=== PATIENT | male | born 1960 | race Caucasian/White ===

== ENCOUNTER 2017-03-20 17:36 | Inpatient (IN) | payer MEDICARE, MEDICAID ==
[~2017-03-20] VITALS: Ht 180.3 cm; Wt 92.8 kg
[2017-03-20] VITALS (10 sets, daily range): BP systolic 93–103; BP diastolic 69–78
[~2017-03-20 17:36] MED LIST: ALPR2TAB2 PO; CYCL10TA9 PO; HDR4T; HDR4T PO; HYDR-3720; HYDR8TAB24 PO; IBP200T PO; IBUP-15; IBUP800T26 PO; NAPR-243; NAPR-243 PO; OXC5T PO; OXYC10TA7 PO; PRD20T PO; TRAM50TA2 PO
--- OUTSIDE RECORDS SUMMARY | 2017-03-20 17:41 | XMS REPORT | Clinical Summary ---
Author Author [facility] Organization [facility] Address Unknown Phone Unavailable Care Team Providers Care Cake Former Name Role Phone PCP Unavailable Source Comments Some departments are not documenting in the electronic medical record. If you do not see the information that you expected, contact Release of Information in the Health Information Management department at [phone] for further assistance in locating additional records.[facility] Allergies Not on File Current Medications Not on file Active Problems Not on file Social History Tobacco Use Types Packs/Day Years Used Date Never Assessed Sex Assigned at Date Recorded Not on file Last Filed Vital Signs Not on file Plan of Treatment Health Maintenance Due Date Last Done Comments HEPATITIS C SCREENING 1960 PHYSICAL (COMPREHENSIVE) 11/09/1966 EXAM PERTUSSIS VACCINE 11/09/1970 TETANUS VACCINE 11/09/1976 COLORECTAL CANCER 11/09/2009 SCREENING INFLUENZA VACCINE 04/08/2017 Results Not on filefrom Last 3 Months
[2017-03-20] MEDS ORDERED: methylPREDNISolone 125 MG (Solu-MEDROL) VIAL IV STA (17:42)
[2017-03-20] MEDS ORDERED: PIPERACILLIN SODIUM/TAZOBACTAM 4.5 GM in NS (IVPB) 100 ML IV ONE (17:45)
[2017-03-20] MEDS ORDERED: NS IV 1000 ML 2,500 ML IV PRN ×2 (17:45→22:00)
[2017-03-20] MEDS ORDERED: RT-ALBUTEROL/IPRATROPIUM 3 ML (DUONEB) VIAL INH ONE (17:45)
[2017-03-20] MEDS ORDERED: OXYC20TA3 PO (17:48)
[2017-03-20] MEDS ORDERED: MORP10CA11 (17:48)
--- NOTE | 2017-03-20 17:51 | ED General ---
General Chief Complaint: Altered Mental Status Stated Complaint: AMS/STROKE LIKE SYMPTOMS Nursing Triage Note: ASSISTED PT OUT OF CAR. STATES THE LAST TIME SHE SAW HIM ON TUESDAY HE WAS SICK AND THROWING UP AND NOT MAKING MUCH SINCE. TODAY WHEN SHE CAME HOME HE IS WORSE. Nursing Sepsis Screen: Possible Severe Sepsis Risk Source of Information: Patient, Spouse Exam Limitations: Other (clinical condition) History of Present Illness Time Seen by Provider: 17:42 Initial Comments patient presents to ER by his a private conveyance with chief complaint of she went out of town Tuesday and he was feeling, appearing when she came back he was not able to move much, shaking and not able to answer questions very well. She states his past medical history consists of some back problems for which she uses morphine twice a day and oxycodone breakthrough. Patient states he did not take that much but is not sure exactly how many tablets he took. patient's able to speak and answer questions and follow commands but he is not able to give much history and is oriented to place but not time. He smokes 2 packs per day per and had a coronary angiogram done here at [place] [facility] for 5 years ago that was unremarkable. He was seen for his annual physical in June 2016 was told everything was okay, no thyroid, lipid disorder, high blood pressure, diabetes, etc. She was told his spinal problems probably due to a distant infection when he was younger. He does not drink alcohol but has a very distant history of marijuana use. Allergies and Home Medications Allergies Coded Allergies: No Known Drug Allergies (Unverified , 08/23/13) Home Medications Alprazolam 2 Mg Tablet, 2 MG PO Q8H PRN, (Reported) Morphine Sulfate 10 Mg Cap.er.pel, #120 (Reported) Oxycodone HCl 20 Mg Tablet, #120 (Reported) Prednisone 20 Mg Tab, 40 MG PO DAILY for 4 Days, Ref 0 Prescribed by: LUIS ARNOLD on 08/23/132027 Tramadol Hcl 50 Mg Tablet, 50 MG PO Q4H PRN for PAIN, #6 Ref 0 Prescribed by: LUIS ARNOLD on 08/23/132027 Constitutional: see HPI (history of present illness given mostly by ), chills, No diaphoresis, malaise, weakness EENTM: No ear discharge, No ear pain, No hearing loss Respiratory: cough, No phlegm, short of breath Cardiovascular: No chest pain, No syncope Gastrointestinal: No abdominal pain, constipation (last bowel movement 2 or more days ago), No nausea, No vomiting Genitourinary: No discharge, No dysuria Musculoskeletal: see HPI, back pain, No joint pain, neck pain Skin: No change in color, No pruritus, No rash Psychiatric/Neurological: Denies Headache, Denies Numbness, Denies Paresthesia Past Nninzmz-Jsvcme-Yzgusz Hx Patient Social History Alcohol Use: Denies Use Recreational Drug Use: No Smoking Status: Current Everyday Smoker Recent Foreign Travel: No Contact w/Someone Who Travel: No Recent Infectious Disease Expo: No Recent Hopitalizations: Yes Surgeries HX Surgeries: No Respiratory Hx Respiratory Disorders: No Cardiovascular Hx Cardiac Disorders: No Neurological Hx Neurological Disorders: No Reproductive System Hx Reproductive Disorders: No Genitourinary Hx Genitourinary Disorders: No Gastrointestinal Hx Gastrointestinal Disorders: Yes (HERNIA SX) Musculoskeletal Hx Musculoskeletal Disorders: Yes (ARACHNODITIS OSSIFICANS) Musculoskeletal Disorders: Chronic Back Pain Endocrine Hx Endocrine Disorders: No HEENT HX ENT Disorders: Yes (RECEDING GUMS) Psychosocial Hx Psychiatric Problems: Yes Blood Transfusions Hx Blood Disorders: No Family Medical History Significant Family History: No Pertinent Family Hx Physical Exam-Suspected Sepsis Physical Exam Vital Signs Vital Sign - Last 12Hours 03/20/17 03/20/17 17:36 18:02 Temp 102.0 Pulse 146 Resp 24 B/P (MAP) 128/71 Pulse Ox 87 O2 Delivery Room Air O2 Flow Rate 2.00 Capillary Refill : Less Than 3 Seconds General Appearance: WD/WN, Moderate Distress Eyes: Bilateral Eye EOMI, Bilateral Eye Normal Inspection, Bilateral Eye PERRL HEENT: PERRL/EOMI, TMs Normal Neck: Normal Inspection, Supple, Tender Lateral Respiratory: Chest Non Tender, Decreased Breath Sounds, Wheezing (diffuse scattered basilar wheezes) Cardiovascular: Regular Rate, Rhythm, No Edema, Tachycardia Gastrointestinal: Non Tender, Soft Genital/Rectal: Normal Genital Exam Back: Normal Inspection, Vertebral Tenderness (all levels) Extremity: Normal Capillary Refill, Normal Inspection, Non Tender, No Pedal Edema Neurologic/Psychiatric: Alert, Other (oriented to person and place but not time ) Reflexes: 2+ Knee (R), 2+ Knee (L) Skin: normal color, warm/dry, other (few minor scratches on right forearm consistent with cat scratch but non-erythematous or inflamed.) Lymphatic: No Adenopathy, Other Focused Exam Evaluation Sepsis Stage: Sepsis Possible Source: Pulmonary Time of Focused Exam: 20:50 Respiratory: Chest Non Tender, No Accessory Muscle Use, Wheezing Cardiovascular: Regular Rate, Rhythm, No Edema, No Murmur Capillary Refill: Less Than 3 Seconds Peripheral Pulses: 2+ Radial Pulses (R), 2+ Radial Pulses (L) Skin: normal color, warm/dry Lactic Acid Level Progress/Results/Core Measures Suspected Sepsis Recent Fever Within 48 Hours: No Infection Criteria Present: Suspected New Infection New/Unexplained Altered Menta: Yes Sepsis Screen: Possible Severe Sepsis Risk Sepsis Diagnosis: SIRS Temperature:102.0 Pulse: Respiratory Rate: 24 Laboratory Tests 03/20/17 17:55: White Blood Count 12.2H Blood Pressure / Mean: Laboratory Tests 03/20/17 17:55: Creatinine 1.47H, INR Comment 1.3, Platelet Count 195, Total Bilirubin 1.7H Results/Orders Lab Results Laboratory Tests Test 03/20/17 17:55 03/20/17 19:45 03/20/17 20:29 03/20/17 21:50 Range/Units White Blood Count 12.2 H 4.3-11.0 10^3/uL Red Blood Count 4.99 4.35-5.85 10^6/uL Hemoglobin 13.5 13.3-17.7 G/DL Hematocrit 40 40-54 % Mean Corpuscular Volume 80 80-99 FL Mean Corpuscular Hemoglobin 27 25-34 PG Mean Corpuscular Hemoglobin Concent 34 32-36 G/DL Red Cell Distribution Width 15.4 H 10.0-14.5 % Platelet Count 195 130-400 10^3/uL Mean Platelet Volume 10.6 H 7.4-10.4 FL Neutrophils (%) (Auto) 89 H 42-75 % Lymphocytes (%) (Auto) 4 L 12-44 % Monocytes (%) (Auto) 5 0-12 % Eosinophils (%) (Auto) 1 0-10 % Basophils (%) (Auto) 0 0-10 % Neutrophils # (Auto) 10.9 H 1.8-7.8 X 10^3 Lymphocytes # (Auto) 0.5 L 1.0-4.0 X 10^3 Monocytes # (Auto) 0.6 0.0-1.0 X 10^3 Eosinophils # (Auto) 0.1 0.0-0.3 10^3/uL Basophils # (Auto) 0.1 0.0-0.1 10^3/uL Neutrophils % (Manual) 81 % Lymphocytes % (Manual) 4 % Monocytes % (Manual) 4 % Eosinophils % (Manual) 0 % Basophils % (Manual) 0 % Band Neutrophils 11 % Blood Morphology Comment NORMAL Prothrombin Time 15.7 H 12.2-14.7 SEC INR Comment 1.3 0.8-1.4 Activated Partial Thromboplast Time 98 H 24-35 SEC Sodium Level 126 L 135-145 MMOL/L Potassium Level 3.9 3.6-5.0 MMOL/L Chloride Level 90 L 98-107 MMOL/L Carbon Dioxide Level 22 21-32 MMOL/L Anion Gap 14 5-14 MMOL/L Blood Urea Nitrogen 18 7-18 MG/DL Creatinine 1.47 H 0.60-1.30 MG/DL Estimat Glomerular Filtration Rate 49 BUN/Creatinine Ratio 12 Glucose Level 102 70-105 MG/DL Lactic Acid Level 3.12 *H 1.54 0.50-2.00 MMOL/L Calcium Level 9.0 8.5-10.1 MG/DL Total Bilirubin 1.7 H 0.1-1.0 MG/DL Aspartate Amino Transf (AST/SGOT) 14 5-34 U/L Alanine Aminotransferase (ALT/SGPT) 11 0-55 U/L Alkaline Phosphatase 107 40-136 U/L Troponin I < 0.30 <0.30 NG/ML Total Protein 7.8 6.4-8.2 GM/DL Albumin 3.3 3.2-4.5 GM/DL Urine Color MARY H Urine Clarity SLIGHTLY CLOUDY Urine pH 5 5-9 Urine Specific [place] 1.020 1.016-1.022 Urine Protein 2+ H NEGATIVE Urine Glucose (UA) NEGATIVE NEGATIVE Urine Ketones NEGATIVE NEGATIVE Urine Nitrite POSITIVE H NEGATIVE Urine Bilirubin 2+ H NEGATIVE Urine Urobilinogen 8 H NORMAL MG/DL Urine Leukocyte Esterase 3+ H NEGATIVE Urine RBC (Auto) 5+ H NEGATIVE Urine RBC 10-25 H /HPF Urine WBC >100 H /HPF Urine Crystals NONE /LPF Urine Bacteria FEW H /HPF Urine Casts NONE /LPF Urine Mucus NEGATIVE /LPF Urine Culture Indicated YES Blood Gas Puncture Site LEFT RADIAL Blood Gas Patient Temperature 99.1 Arterial Blood pH 7.38 7.37-7.43 Arterial Blood Partial Pressure CO2 37 35-45 MMHG Arterial Blood Partial Pressure O2 55 L 79-93 MMHG Arterial Blood HCO3 22 L 23-27 MMOL/L Arterial Blood Total CO2 22.8 21.0-31.0 MMOL/L Arterial Blood Oxygen Saturation 87 L 94-100 % Arterial Blood Base Excess -2.6 L -2.5-2.5 MMOL/L Ozzy Test YES-POS Blood Gas Ventilator Setting NO Blood Gas Inspired Oxygen ROOM AIR Test 03/21/17 00:35 Range/Units My Orders Orders - NAZARIO LIVINGSTON Acetaminophen Tablet (Tylenol Tablet) (03/20/17 18:00) Diltiazem Injection (Cardizem Injection) (03/20/17 18:15) Sodium Chloride (Ad... W/Diltiazem Drip (03/20/17 18:15) Ekg Tracing (03/20/17 18:39) Osmolality Urine (03/20/17 19:35) Enoxaparin Injection (Lovenox Injection) (03/20/17 21:00) Rx-Nitroglycerin Sl Tabs (Rx-Nitrostat S (03/20/17 21:06) Fentanyl Injection (Sublimaze Injection (03/20/17 21:08) Medications Given in ED Current Medications Medications Dose Ordered Sig/Kenzie Route Start Time Stop Time Status Last Admin Dose Admin Acetaminophen 1,000 mg ONCE ONCE PO 03/20/17 18:00 03/20/17 18:01 DC 03/20/17 18:07 1,000 MG Albuterol/ Ipratropium 3 ml ONCE ONCE INH 03/20/17 17:45 03/20/17 17:46 DC 03/20/17 18:01 3 ML Diltiazem HCl 10 mg ONCE ONCE IVP 03/20/17 18:15 03/20/17 18:16 DC 03/20/17 18:32 10 MG Piperacillin Sod/ Tazobactam Sod 4.5 gm/Sodium Chloride 100 ml @ 200 mls/hr ONCE ONCE IV 03/20/17 17:45 03/20/17 18:14 DC 03/20/17 18:26 200 MLS/HR Sodium Chloride 2,500 ml @ 1,250 mls/hr PRN PRN IV 03/20/17 17:45 03/20/17 21:56 DC 03/20/17 17:55 1,250 MLS/HR Vital Signs/I&O Vital Sign - Last 12Hours 03/20/17 03/20/17 03/20/17 03/20/17 17:36 18:02 18:36 21:25 Temp 102.0 102.5 99.9 Pulse 146 116 84 Resp 24 20 18 B/P (MAP) 128/71 105/71 Pulse Ox 87 95 92 92 O2 Delivery Room Air Nasal Cannula Room Air O2 Flow Rate 2.00 03/20/17 03/20/17 03/20/17 03/20/17 21:33 21:40 21:45 22:00 Temp 99.1 Pulse 85 79 82 Resp 16 18 B/P (MAP) 102/78 100/74 Pulse Ox 92 90 O2 Delivery Room Air Room Air Nasal Cannula O2 Flow Rate 2.00 03/20/17 03/20/17 03/20/17 03/20/17 22:00 22:15 22:15 22:16 Pulse 73 72 80 Resp 13 10 B/P (MAP) 95/71 100/77 Pulse Ox 90 90 94 90 O2 Delivery Room Air Room Air Room Air 03/20/17 03/20/17 03/20/17 03/20/17 22:30 22:45 22:45 23:00 Pulse 69 77 76 Resp 12 25 20 B/P (MAP) 99/78 93/69 96/76 Pulse Ox 95 92 95 94 O2 Delivery Room Air Room Air Nasal Cannula Room Air O2 Flow Rate 2.00 03/20/17 03/20/17 23:15 23:30 Pulse 79 77 Resp 38 24 B/P (MAP) 103/70 99/74 Pulse Ox 93 92 O2 Delivery Room Air Room Air Capillary Refill : Less Than 3 Seconds Progress Note : Time: 18:08 Progress Note patient appears to be septic and gives a history of a cough and a history of 2 pack a day smoking as well as using breathing treatments for what is likely COPD. We'll go and treat him for severe sepsis. His blood pressures okay but it was roughly satting low on room air. Were giving him Solu-Medrol as well as starting him on some Zosyn for community-acquired pneumonia. We'll get x-ray and blood cultures He appears very dry and is unable to produce any urine yet so we'll get some fluids in him first. ECG Initial ECG Impression Date: Mar 20, 2017 Initial ECG Impression Time: 17:50 Initial ECG Rate: 146 Initial ECG Rhythm: S.Tach Initial ECG Intervals: Normal Initial ECG Impression: Nonspecific Changes (sinus ventricular tachycardia) Initial ECG Comparisson: No Previous ECG Available Comment there is some ST wave depression in the lateral leads V3 through 6 as well as a lot of artifact. EKG : EKG Time: 19:20 Rate: 97 Rhythm: A Fib/Flutter Intervals: Normal ECG Comparisson: No Previous ECG Available ECG Impression: Atrial Fibrillation Comment No ST elevation or depression Consults Consults : Consulting Physician: CECILLE MONTIEL MD Consults Notes discussed with cardiology the patient's diffuse lateral ST wave depression as well as his presentation of looking like sepsis with fever and being very dry and confused. He recommends starting Cardizem 10 mg bolus plus drip at 5 mg per hour. He says if the patient becomes hypotensive just discontinue the drip and I will metabolize off in about 5 minutes. I forwarded a copy of the EKG to the cyber software engineer to review. He recommends getting a couple liters of fluid in the gentlemen's well. After reviewing the EKG the cyber software engineer states that he agrees and we should watch for ST changes after the heart rate improves. Departure Communication Time/Spoke to Admitting Phy: 19:42 Communication Jain; discussed the case and antibiotic selection. Discussed cardiology's involvement and Cardizem drip. Impression Impression: Primary Impression: Sepsis Qualified Codes: A41.9 - Sepsis, unspecified organism Additional Impression: Atrial flutter by electrocardiogram Disposition: 09 ADMITTED INPATIENT Condition: Stable Admissions Decision to Admit Reason: Admit from ER (General) Decision to Admit/Date: Mar 20, 2017 Time/Decision to Admit Time: 20:50 Departure-Patient Inst. Referrals: NO,LOCAL PHYSICIAN (PCP/Family) Primary Care Physician NAZARIO LIVINGSTON Mar 20, 2017 17:51
[2017-03-20] MEDS ORDERED: ACETAMINOPHEN 500 MG TAB (TYLENOL) PO ONE (18:00)
[2017-03-20 18:03] LABS: BASOPHILS # (AUTO) 0.1 10^3/uL (0.0-0.1); BASOPHILS % (AUTO) 0 % (0-10); EOSINOPHILS # (AUTO) 0.1 10^3/uL (0.0-0.3); EOSINOPHILS % (AUTO) 1 % (0-10); LYMPHOCYTES # (AUTO) 0.5 X 10^3 (1.0-4.0); LYMPHOCYTES % (AUTO) 4 % (12-44); MEAN CORPUSCULAR HEMOGLOBIN 27 PG (25-34); MEAN CORPUSCULAR HGB CONC 34 G/DL (32-36); MEAN CORPUSCULAR VOLUME 80 FL (80-99); MEAN PLATELET VOLUME 10.6 FL (7.4-10.4); MONOCYTES # (AUTO) 0.6 X 10^3 (0.0-1.0); MONOCYTES % (AUTO) 5 % (0-12); NEUTROPHILS # (AUTO) 10.9 X 10^3 (1.8-7.8); NEUTROPHILS % (AUTO) 89 % (42-75); PLATELET COUNT 195 10^3/uL (130-400); RED BLOOD COUNT 4.99 10^6/uL (4.35-5.85); RED CELL DISTRIBUTION WIDTH 15.4 % (10.0-14.5); WHITE BLOOD COUNT 12.2 10^3/uL (4.3-11.0)
[2017-03-20 18:14] LABS: INR 1.3 (0.8-1.4); PROTHROMBIN TIME PATIENT 15.7 SEC (12.2-14.7)
[2017-03-20] MEDS ORDERED: DILTIAZEM DRIP 100 MG in SODIUM CHLORIDE (ADD-VANTAGE) 100 ML IV SCH (18:15)
[2017-03-20] MEDS ORDERED: DILTIAZEM 25 MG/5 ML INJ (CARDIZEM) VIAL IVP ONE (18:15)
[2017-03-20 18:26] LABS: ALANINE AMINOTRANSFERASE 11 U/L (0-55); ALBUMIN 3.3 GM/DL (3.2-4.5); ANION GAP 14 MMOL/L (5-14); ASPARTATE AMINO TRANSFERASE 14 U/L (5-34); BAND NEUTROPHILS 11 %; BASOPHILS % (MANUAL) 0 %; BILIRUBIN,TOTAL 1.7 MG/DL (0.1-1.0); BLOOD UREA NITROGEN 18 MG/DL (7-18); BUN/CREATININE RATIO 12; CARBON DIOXIDE 22 MMOL/L (21-32); CHLORIDE 90 MMOL/L (98-107); CREATININE SERUM 1.47 MG/DL (0.60-1.30); EOSINOPHILS % (MANUAL) 0 %; GFR ESTIMATED 49; GLUCOSE 102 MG/DL (70-105); LYMPHOCYTES % (MANUAL) 4 %; NEUTROPHILS % (MANUAL) 81 %; POTASSIUM 3.9 MMOL/L (3.6-5.0); SODIUM 126 MMOL/L (135-145); TOTAL PROTEIN 7.8 GM/DL (6.4-8.2)
[2017-03-20 18:31] LABS: TROPONIN I < 0.30 NG/ML (<0.30)
--- NOTE | 2017-03-20 18:37 | Diagnostic Imaging Report ---
INDICATION: Lethargy. Nausea and vomiting. COMPARISON: 01/01/2009. EXAMINATION: Single frontal view of the chest was obtained. FINDINGS: Normal heart size and pulmonary vascularity. The lungs show low inspiratory volumes, but are otherwise clear. No large pleural effusion or pneumothorax is seen. The visualized osseous structures show no acute abnormalities. IMPRESSION: No acute cardiopulmonary process. Dictated by: Dictated on workstation # [id number]
[2017-03-20 19:52] LABS: BILIRUBIN,URINE 2+ (NEGATIVE); KETONES,URINE NEGATIVE (NEGATIVE); LEUKOCYTE ESTERASE ,URINE 3+ (NEGATIVE); NITRITE,URINE POSITIVE (NEGATIVE); PH,URINE 5 (5-9); PROTEIN,URINE 2+ (NEGATIVE); UROBILINOGEN,URINE 8 MG/DL (NORMAL)
[2017-03-20 20:13] LABS: WBC,URINE >100 /HPF
[2017-03-20] MEDS ORDERED: ENOXAPARIN 100 MG/1 ML (LOVENOX) SYR SC ONE (21:00)
[2017-03-20] MEDS ORDERED: RX-NITROGLYCERIN 0.4 MG TAB BTL 25'S SL ONE (21:06)
[2017-03-20] MEDS ORDERED: fentaNYL INJECTION 100 MCG/2 ML AMP ONE (21:08)
[2017-03-20] MEDS ORDERED: ENOXAPARIN 100 MG/1 ML (LOVENOX) SYR SC SCH (21:53)
[2017-03-20] MEDS ORDERED: NS IV 1000 ML 1,000 ML IV SCH (21:58)
[2017-03-20 21:59] LABS: ABG BASE EXCESS -2.6 MMOL/L (-2.5-2.5); ABG HCO3 22 MMOL/L (23-27); ABG OXYGEN SATURATION 87 % (94-100); ABG PCO2 37 MMHG (35-45); ABG PH 7.38 (7.37-7.43); ABG PO2 55 MMHG (79-93); ABG TCO2 22.8 MMOL/L (21.0-31.0)
[2017-03-20] MEDS ORDERED: morphine INJ 4 MG/ML 1 ML (VIAL/SYRINGE) IV PRN (22:00)
[2017-03-20] MEDS ORDERED: NITROGLYCERIN SUBLINGUAL 0.4 MG TAB (NITROSTAT) SL PRN (22:00)
[2017-03-20] MEDS ORDERED: ACETAMINOPHEN 325 MG TABLET/CAPLET (TYLENOL) PO PRN (22:00)
[2017-03-20] MEDS ORDERED: ONDANSETRON 4 MG/2 ML (SDV) Z0FRAN IV PRN (22:00)
[2017-03-20] MEDS: DILTIAZEM DRIP 100 MG/NS 100 ML IV SCH ×2 (22:00)
[2017-03-20 22:01] LABS: ALLENS TEST YES-POS; PATIENT TEMP 99.1
[2017-03-20] MEDS ORDERED: cefTRIAXone INJECTION 1,000 MG in NS (IVPB) 50 ML IV SCH (22:06)
[2017-03-20] MEDS ORDERED: AZITHROMYCIN INJECTION 500 MG in NS (IVPB) 250 ML IV ONE (22:07)
[2017-03-20] MEDS: NS IV 1000 ML 1,000 ML IV SCH (22:43)
[2017-03-20] MEDS ORDERED: RT-ALBUTEROL/IPRATROPIUM 3 ML (DUONEB) VIAL INH PRN (22:45)
[2017-03-21] VITALS (25 sets, daily range): BP systolic 72–120; BP diastolic 39–96
[2017-03-21] MEDS: RT-ALBUTEROL/IPRATROPIUM 3 ML (DUONEB) VIAL INH SCH ×6 (01:26→22:09)
[2017-03-21] MEDS ORDERED: NS IV 1000 ML 1,000 ML IV SCH ×2 (02:00→07:30)
[2017-03-21] MEDS: PIPERACILLIN/TAZOBACTAM 4.5 GM/NS100 ML IVPB IV SCH ×6 (02:15→16:38)
[2017-03-21] MEDS: methylPREDNISolone 40 MG/ML (Solu-MEDROL) VIAL IV SCH ×3 (02:15→18:24)
[2017-03-21] MEDS ORDERED: PANTOPRAZOLE 40 MG/10 ML (PROTONIX) VIAL ONE (04:11)
[2017-03-21] MEDS ORDERED: PANTOPRAZOLE 40 MG/10 ML (PROTONIX) VIAL IV SCH (05:00)
[2017-03-21 05:21] LABS: BASOPHILS % (AUTO) 0 % (0-10); EOSINOPHILS % (AUTO) 0 % (0-10); LYMPHOCYTES # (AUTO) 0.3 X 10^3 (1.0-4.0); LYMPHOCYTES % (AUTO) 4 % (12-44); MEAN CORPUSCULAR HEMOGLOBIN 27 PG (25-34); MEAN CORPUSCULAR HGB CONC 33 G/DL (32-36); MEAN CORPUSCULAR VOLUME 81 FL (80-99); MEAN PLATELET VOLUME 11.1 FL (7.4-10.4); MONOCYTES # (AUTO) 0.3 X 10^3 (0.0-1.0); MONOCYTES % (AUTO) 4 % (0-12); NEUTROPHILS # (AUTO) 7.4 X 10^3 (1.8-7.8); NEUTROPHILS % (AUTO) 92 % (42-75); PLATELET COUNT 144 10^3/uL (130-400); RED BLOOD COUNT 3.91 10^6/uL (4.35-5.85); RED CELL DISTRIBUTION WIDTH 15.3 % (10.0-14.5); WHITE BLOOD COUNT 8.1 10^3/uL (4.3-11.0)
--- OUTSIDE RECORDS SUMMARY | 2017-03-21 05:29 | XMS REPORT | Clinical Summary ---
Author Author [facility] Organization [facility] Address Unknown Phone Unavailable Care Team Providers Care Charging Plug Placer Name Role Phone PCP Unavailable Source Comments Some departments are not documenting in the electronic medical record. If you do not see the information that you expected, contact Release of Information in the Health Information Management department at [phone] for further assistance in locating additional records.[facility] Allergies Not on File Current [...]
[2017-03-21 05:34] LABS: ALANINE AMINOTRANSFERASE 10 U/L (0-55); ALBUMIN 2.6 GM/DL (3.2-4.5); ANION GAP 11 MMOL/L (5-14); ASPARTATE AMINO TRANSFERASE 13 U/L (5-34); BLOOD UREA NITROGEN 19 MG/DL (7-18); BUN/CREATININE RATIO 19; CARBON DIOXIDE 19 MMOL/L (21-32); CHLORIDE 103 MMOL/L (98-107); CHOLESTEROL 48 MG/DL (< 200); CREATININE SERUM 0.99 MG/DL (0.60-1.30); DIRECT LDL 16 MG/DL (1-129); GFR ESTIMATED > 60; GLUCOSE 167 MG/DL (70-105); MAGNESIUM 1.5 MG/DL (1.8-2.4); PHOSPHORUS 3.5 MG/DL (2.3-4.7); POTASSIUM 3.3 MMOL/L (3.6-5.0); SODIUM 133 MMOL/L (135-145); TOTAL PROTEIN 5.9 GM/DL (6.4-8.2); TRIGLYCERIDES 77 MG/DL (<150); VLDL CHOLESTEROL 15 MG/DL (5-40)
[2017-03-21 05:39] LABS: TROPONIN I < 0.30 NG/ML (<0.30)
[2017-03-21] MEDS: POTASSIUM CL 10MEQ/50ML IVPB 50 ML IV SCH ×5 (05:57→09:59)
[2017-03-21] MEDS: MAGNESIUM 1 GM/100 ML IVPB 100 ML IV SCH ×3 (05:57→07:01)
[2017-03-21] MEDS: KCL 20 MEQ TAB (K-DUR) PO SCH (05:58)
[2017-03-21] MEDS ORDERED: NS IV 500 ML 500 ML ONE (06:07)
[2017-03-21] MEDS ORDERED: NS IV 500 ML 500 ML IV ONE (06:15)
--- NOTE | 2017-03-21 06:37 | Pulmonary Consultation ---
History of Present Illness History of Present Illness Date of Consultation 03/21/17 06:32 Time Seen by Provider: 06:32 Date of Admission History of Present Illness 56yo with hx of COPD with persistent tobacco use presented to ED secondary to progressive SOB, and productive cough of yellow sputum. Family insisted pt present to ED secondary to appearing ill. Pt was found to have Dyspnea, wheezing labs showed WBC 12.2 and LA 3.12. No prior episodes like this. No known sick contacts. Allergies and Home Medications Allergies Coded Allergies: No Known Drug Allergies (Unverified , 08/23/13) Home Medications Alprazolam 2 Mg Tablet, 2 MG PO Q8H PRN, (Reported) Morphine Sulfate 10 Mg Cap.er.pel, #120 (Reported) Oxycodone HCl 20 Mg Tablet, #120 (Reported) Prednisone 20 Mg Tab, 40 MG PO DAILY for 4 Days, Ref 0 Prescribed by: LUIS ARNOLD on 08/23/132027 Tramadol Hcl 50 Mg Tablet, 50 MG PO Q4H PRN for PAIN, #6 Ref 0 Prescribed by: LUIS ARNOLD on 08/23/132027 Past Gzhcjsw-Ytizjt-Novlqv Hx Patient Social History Alcohol Use: Denies Use Recreational Drug Use: No Smoking Status: Current Everyday Smoker Type Used: Cigarettes Recent Foreign Travel: No Contact w/Someone Who Travel: No Recent Infectious Disease Expo: No Recent Hopitalizations: No Physical Abuse Screen: No Sexual Abuse: No Immunizations Up To Date PED Vaccines UTD: No Seasonal Allergies Seasonal Allergies: No Surgeries HX Surgeries: No Respiratory Hx Respiratory Disorders: No Respiratory Disorders: COPD Cardiovascular Hx Cardiac Disorders: No Neurological Hx Neurological Disorders: No Reproductive System Hx Reproductive Disorders: No Genitourinary Hx Genitourinary Disorders: No Gastrointestinal Hx Gastrointestinal Disorders: Yes (HERNIA SX) Gastrointestinal Disorders: Gastroesophageal Reflux Musculoskeletal Hx Musculoskeletal Disorders: Yes (ARACHNODITIS OSSIFICANS) Musculoskeletal Disorders: Chronic Back Pain Endocrine Hx Endocrine Disorders: No HEENT HX ENT Disorders: Yes (RECEDING GUMS) Psychosocial Hx Psychiatric Problems: Yes Blood Transfusions Hx Blood Disorders: No Family Medical History Significant Family History: No Pertinent Family Hx Exam Exam Vital Signs Date Time Temp Pulse Resp B/P (MAP) Pulse Ox O2 Delivery O2 Flow Rate FiO2 03/21/17 06:15 68 19 85/57 94 Nasal Cannula 2.00 03/21/17 05:21 54 87/65 8/14/17 05:17 59 11 87/65 91 Nasal Cannula 2.00 03/21/17 04:30 96.5 Nasal Cannula 2.00 03/21/17 04:00 61 23 85/57 95 Nasal Cannula 2.00 03/21/17 04:00 95 Nasal Cannula 2.00 03/21/17 03:00 60 18 85/61 92 Nasal Cannula 2.00 03/21/17 02:00 70 6 85/68 92 Nasal Cannula 2.00 03/21/17 01:50 73 03/21/17 01:26 95 Nasal Cannula 2.00 03/21/17 01:00 65 23 88/63 89 Nasal Cannula 2.00 03/21/17 00:00 99.6 Nasal Cannula 2.00 03/21/17 00:00 81 16 97/70 92 Nasal Cannula 2.00 03/21/17 00:00 95 Nasal Cannula 2.00 03/20/17 23:30 77 24 99/74 92 Room Air 03/20/17 23:15 79 38 103/70 93 Room Air 03/20/17 23:00 76 20 96/76 94 Room Air 03/20/17 22:45 95 Nasal Cannula 2.00 03/20/17 22:45 77 25 93/69 92 Room Air 03/20/17 22:30 69 12 99/78 95 Room Air 03/20/17 22:16 80 90 21 03/20/17 22:15 72 10 100/77 94 Room Air 03/20/17 22:15 90 Room Air 03/20/17 22:00 73 13 95/71 90 Room Air 03/20/17 22:00 Nasal Cannula 2.00 03/20/17 21:45 82 18 100/74 90 Room Air 03/20/17 21:40 79 03/20/17 21:33 99.1 85 16 102/78 92 Room Air 03/20/17 21:30 91 Room Air 03/20/17 21:25 99.9 84 18 92 Room Air 03/20/17 18:36 102.5 116 20 105/71 92 03/20/17 18:02 95 Nasal Cannula 2.00 03/20/17 17:36 102.0 146 24 128/71 87 Room Air I & O 03/21/17 06:59 Intake Total 4000 ml Output Total 1600 ml Balance 2400 ml General Appearance: WD/WN, Mild Distress HEENT: PERRL/EOMI, TMs Normal Neck: Normal Inspection, Supple, Tender Lateral Respiratory: Chest Non Tender, No Accessory Muscle Use, Wheezing Cardiovascular: Regular Rate, Rhythm, No Edema, No Murmur Capillary Refill: Less Than 3 Seconds Peripheral Pulses: 2+ Radial Pulses (R), 2+ Radial Pulses (L) Extremity: Normal Capillary Refill, Normal Inspection, Non Tender, No Pedal Edema Neurologic/Psychiatric: Alert, Other (oriented to person and place but not time ) Lymphatic: No Adenopathy, Other Results Lab Laboratory Tests 03/20/17 17:55 03/21/17 04:50 Assessment/Plan Assessment/Plan Severe Sepsis with UTI and probable Community acquired PNA -Continue Zosyn -Aggressive IVF per protocol NS 120 (30cc/kg) -Soto cultures pending (blood, urine, Sputum) -Pt is currently growing s. aureus in 2/2 blood cultures -Will add vancomycin for now (pt has sever sepsis and has been hypotensive. I question if normal WBC on this AM labs is correct) -Keep zosyn until cultures our final Hypotension - responding to IVF -IVF -Repeat 1 liter bolus of NS COPDAE -Solumedrol 40 IV Q 6 -SVNS duoneb Q4 and Q2 PRN Metabolic lactic acidosis -IVF -Monitor Aflutter with RVR -Was on cardizem gtt now d/c secondary to bradycardia Hypokalemia -40meq KCL Hypomagnesemia -2gms of Mgsulfate GI/DVT ppx -currently on protonix 40mg BID -- secondary to HB dropping rapidly -check occult stool -Lovenox currently -SCDs - pt is refusing 255 Clinical Quality Measures DVT/VTE Risk/Contraindication: Risk Factor Score Per Nursin RFS Level Per Nursing on Admit: 4+=Very High CONCEPCION GUZMAN DO Mar 21, 2017 06:37
[2017-03-21] MEDS ORDERED: VANCOMYCIN INJECTION 0.1 MG in NS (IVPB) 250 ML IV SCH (07:00)
[2017-03-21] MEDS ORDERED: VANCOMYCIN 1,750 MG/NS 500 ML IVPB IV NR ×2 (07:45)
--- NOTE | 2017-03-21 08:02 | Diagnostic Imaging Report ---
INDICATION: COPD. EXAMINATION: Chest, December 19, 2016. Comparison made to 03/20/2013. FINDINGS: The heart is enlarged and there is pulmonary poor gastric congestion. There are findings of pulmonary edema with likely underlying chronic interstitial changes also present. Atelectasis or infiltrate seen at the left lung base perhaps more pronounced than on recent imaging with no significant effusion seen. There is a vague increased density in the right lung apex not seen recently on the previous examination, therefore, likely due to superimposed structures but followup recommended to assure resolution. IMPRESSION: 1. Pulmonary edema with atelectasis or infiltrate left lung base increasing since previous imaging. 2. Vague increased density in the periphery of the right upper lung perhaps superimposed structures as there is a line overlying the chest in that region. Followup recommended to assure resolution. Dictated by: Dictated on workstation # [id number]
[2017-03-21] MEDS ORDERED: AZITHROMYCIN 250 MG TAB (ZITHROMAX) PO SCH (09:00)
[2017-03-21] MEDS ORDERED: morphine ER 100 MG (MS CONTIN) TAB PO SCH (09:00)
--- NOTE | 2017-03-21 09:02 | Consultation-Cardiology ---
HPI-Cardiology Cardiology Consultation Date of Consultation 03/21/17 Date of Admission Time Seen by Provider: 08:56 Indication: tachycardia HPI 56 years old gentleman with history of COPD, tobaccoism, was not feeling well for the past couple of days, complaining of generalized weakness, loss of energy , lightheadedness, had some shortness of breath which was worsening. Brought by his family to the emergency room and he was noted to have sepsis, had staph aureus grew in his blood culture in 2 bottles, was in atrial fibrillation with rapid ventricular response, heart rate is better on the Cardizem drip, started on Lovenox, today he is having some neck pain on the left side of his neck, having chest pain mainly with coughing. Still complaining of generalized weakness and loss of energy. Home Medications & Allergies Allergies: Coded Allergies: No Known Drug Allergies (Unverified , 08/23/13) Home Medication List Reviewed: Yes KXB-Cldecs-Bilnfi Hx Patient Social History Marital Status: Employed/Student: employed Alcohol Use: Denies Use Recreational Drug Use: No Smoking Status: Current Everyday Smoker Type Used: Cigarettes Recent Foreign Travel: No Recent Infectious Disease Expo: No Recent Hopitalizations: No Physical Abuse Screen: No Sexual Abuse: No Past Medical History COPD Family Medical History Significant Family History: No Pertinent Family Hx Family Medical Hx noncontributory to his current condition Constitutional: dizziness, malaise, weakness EENTM: see HPI Respiratory: see HPI, cough, dyspnea on exertion, short of breath Cardiovascular: see HPI, chest pain (on coughing), No edema, No Hx of Intervention, No palpitations, No syncope, No vascular heart diseas, No other Gastrointestinal: no symptoms reported, see HPI Genitourinary: no symptoms reported, see HPI Musculoskeletal: see HPI, neck pain Skin: see HPI Psychiatric/Neurological: No Symptoms Reported, See HPI Reviewed Test Results Reviewed Test Results Lab Laboratory Tests Test 03/20/17 17:55 03/20/17 19:45 03/20/17 20:29 03/20/17 21:50 Range/Units White Blood Count 12.2 H 4.3-11.0 10^3/uL Red Blood Count 4.99 4.35-5.85 10^6/uL Hemoglobin 13.5 13.3-17.7 G/DL Hematocrit 40 40-54 % Mean Corpuscular Volume 80 80-99 FL Mean Corpuscular Hemoglobin 27 25-34 PG Mean Corpuscular Hemoglobin Concent 34 32-36 G/DL Red Cell Distribution Width 15.4 H 10.0-14.5 % Platelet Count 195 130-400 10^3/uL Mean Platelet Volume 10.6 H 7.4-10.4 FL Neutrophils (%) (Auto) 89 H 42-75 % Lymphocytes (%) (Auto) 4 L 12-44 % Monocytes (%) (Auto) 5 0-12 % Eosinophils (%) (Auto) 1 0-10 % Basophils (%) (Auto) 0 0-10 % Neutrophils # (Auto) 10.9 H 1.8-7.8 X 10^3 Lymphocytes # (Auto) 0.5 L 1.0-4.0 X 10^3 Monocytes # (Auto) 0.6 0.0-1.0 X 10^3 Eosinophils # (Auto) 0.1 0.0-0.3 10^3/uL Basophils # (Auto) 0.1 0.0-0.1 10^3/uL Neutrophils % (Manual) 81 % Lymphocytes % (Manual) 4 % Monocytes % (Manual) 4 % Eosinophils % (Manual) 0 % Basophils % (Manual) 0 % Band Neutrophils 11 % Blood Morphology Comment NORMAL Prothrombin Time 15.7 H 12.2-14.7 SEC INR Comment 1.3 0.8-1.4 Activated Partial Thromboplast Time 98 H 24-35 SEC Sodium Level 126 L 135-145 MMOL/L Potassium Level 3.9 3.6-5.0 MMOL/L Chloride Level 90 L 98-107 MMOL/L Carbon Dioxide Level 22 21-32 MMOL/L Anion Gap 14 5-14 MMOL/L Blood Urea Nitrogen 18 7-18 MG/DL Creatinine 1.47 H 0.60-1.30 MG/DL Estimat Glomerular Filtration Rate 49 BUN/Creatinine Ratio 12 Glucose Level 102 70-105 MG/DL Lactic Acid Level 3.12 *H 1.54 0.50-2.00 MMOL/L Calcium Level 9.0 8.5-10.1 MG/DL Total Bilirubin 1.7 H 0.1-1.0 MG/DL Aspartate Amino Transf (AST/SGOT) 14 5-34 U/L Alanine Aminotransferase (ALT/SGPT) 11 0-55 U/L Alkaline Phosphatase 107 40-136 U/L Troponin I < 0.30 <0.30 NG/ML Total Protein 7.8 6.4-8.2 GM/DL Albumin 3.3 3.2-4.5 GM/DL Urine Color MARY H Urine Clarity SLIGHTLY CLOUDY Urine pH 5 5-9 Urine Specific [place] 1.020 1.016-1.022 Urine Protein 2+ H NEGATIVE Urine Glucose (UA) NEGATIVE NEGATIVE Urine Ketones NEGATIVE NEGATIVE Urine Nitrite POSITIVE H NEGATIVE Urine Bilirubin 2+ H NEGATIVE Urine Urobilinogen 8 H NORMAL MG/DL Urine Leukocyte Esterase 3+ H NEGATIVE Urine RBC (Auto) 5+ H NEGATIVE Urine RBC 10-25 H /HPF Urine WBC >100 H /HPF Urine Crystals NONE /LPF Urine Bacteria FEW H /HPF Urine Casts NONE /LPF Urine Mucus NEGATIVE /LPF Urine Culture Indicated YES Blood Gas Puncture Site LEFT RADIAL Blood Gas Patient Temperature 99.1 Arterial Blood pH 7.38 7.37-7.43 Arterial Blood Partial Pressure CO2 37 35-45 MMHG Arterial Blood Partial Pressure O2 55 L 79-93 MMHG Arterial Blood HCO3 22 L 23-27 MMOL/L Arterial Blood Total CO2 22.8 21.0-31.0 MMOL/L Arterial Blood Oxygen Saturation 87 L 94-100 % Arterial Blood Base Excess -2.6 L -2.5-2.5 MMOL/L Ozzy Test YES-POS Blood Gas Ventilator Setting NO Blood Gas Inspired Oxygen ROOM AIR Test 03/21/17 00:35 03/21/17 04:50 Range/Units Troponin I < 0.30 < 0.30 <0.30 NG/ML White Blood Count 8.1 4.3-11.0 10^3/uL Red Blood Count 3.91 L 4.35-5.85 10^6/uL Hemoglobin 10.6 #L 13.3-17.7 G/DL Hematocrit 32 L 40-54 % Mean Corpuscular Volume 81 80-99 FL Mean Corpuscular Hemoglobin 27 25-34 PG Mean Corpuscular Hemoglobin Concent 33 32-36 G/DL Red Cell Distribution Width 15.3 H 10.0-14.5 % Platelet Count 144 130-400 10^3/uL Mean Platelet Volume 11.1 H 7.4-10.4 FL Neutrophils (%) (Auto) 92 H 42-75 % Lymphocytes (%) (Auto) 4 L 12-44 % Monocytes (%) (Auto) 4 0-12 % Eosinophils (%) (Auto) 0 0-10 % Basophils (%) (Auto) 0 0-10 % Neutrophils # (Auto) 7.4 1.8-7.8 X 10^3 Lymphocytes # (Auto) 0.3 L 1.0-4.0 X 10^3 Monocytes # (Auto) 0.3 0.0-1.0 X 10^3 Eosinophils # (Auto) 0.0 0.0-0.3 10^3/uL Basophils # (Auto) 0.0 0.0-0.1 10^3/uL Sodium Level 133 L 135-145 MMOL/L Potassium Level 3.3 L 3.6-5.0 MMOL/L Chloride Level 103 98-107 MMOL/L Carbon Dioxide Level 19 L 21-32 MMOL/L Anion Gap 11 5-14 MMOL/L Blood Urea Nitrogen 19 H 7-18 MG/DL Creatinine 0.99 0.60-1.30 MG/DL Estimat Glomerular Filtration Rate > 60 BUN/Creatinine Ratio 19 Glucose Level 167 H 70-105 MG/DL Lactic Acid Level 1.49 0.50-2.00 MMOL/L Calcium Level 8.0 L 8.5-10.1 MG/DL Phosphorus Level 3.5 2.3-4.7 MG/DL Magnesium Level 1.5 L 1.8-2.4 MG/DL Total Bilirubin 1.0 0.1-1.0 MG/DL Aspartate Amino Transf (AST/SGOT) 13 5-34 U/L Alanine Aminotransferase (ALT/SGPT) 10 0-55 U/L Alkaline Phosphatase 75 40-136 U/L Total Protein 5.9 L 6.4-8.2 GM/DL Albumin 2.6 L 3.2-4.5 GM/DL Triglycerides Level 77 <150 MG/DL Cholesterol Level 48 < 200 MG/DL LDL Cholesterol Direct 16 1-129 MG/DL VLDL Cholesterol 15 5-40 MG/DL HDL Cholesterol < 15 L 40-60 MG/DL Physical Exam Vital Signs Vital Sign - Last 12Hours 03/20/17 03/20/17 03/20/17 17:36 18:02 22:16 Temp 102.0 Pulse 146 Resp 24 B/P (MAP) 128/71 Pulse Ox 87 O2 Delivery Room Air O2 Flow Rate 2.00 FiO2 21 Capillary Refill : Less Than 3 Seconds General Appearance: WD/WN, Mild Distress Eyes: Bilateral Eye EOMI, Bilateral Eye Normal Inspection, Bilateral Eye PERRL HEENT: PERRL/EOMI, TMs Normal, Normal ENT Inspection, Pharynx Normal, Other ( neck pain) Neck: Full Range of Motion, Normal Inspection, Non Tender, Supple, Carotid Bruit Respiratory: Chest Non Tender, No Accessory Muscle Use, No Respiratory Distress , Crackles Cardiovascular: No Edema, No Gallop, No JVD, Normal Peripheral Pulses, Systolic Murmur, Irregularly Irregular Gastrointestinal: Normal Bowel Sounds, No Organomegaly, No Pulsatile Mass, Non Tender, Soft Back: Normal Inspection, No CVA Tenderness, No Vertebral Tenderness Extremity: Normal Capillary Refill, Normal Inspection, Normal Range of Motion, Non Tender, No Calf Tenderness, No Pedal Edema Neurologic/Psychiatric: Alert, Oriented x3, No Motor/Sensory Deficits, Normal Mood/Affect Skin: Normal Color, Warm/Dry Lymphatic: No Adenopathy A/P-Cardiology Admission Diagnosis Sepsis UTI Atrial fibrillation Hypotension Assessment/Plan Sepsis, staph aureus in the blood, urinary tract infection and questionable pulmonary infiltrate, started on aggressive antibiotic coverage, managed by Dr. Falcon, patient is having neck pain, no palpable mass, discomfort on moving his neck, mainly on the left side, planning to evaluate CT of the neck and chest. Atrial fibrillation with rapid ventricular response, heart rate is better on Cardizem drip, borderline hypotensive at this time, I will add digoxin and try to decrease the Cardizem dose, continue on aggressive IV fluid for now, evaluate 2-D echocardiogram. Anterior chest wall pain, musculoskeletal mainly with coughing. Unlikely to be cardiac at this time, had some ST depression while his heart rate is 140, planning to evaluate stress test as an outpatient. Generalized weakness and fatigue secondary to sepsis Urinary tract infection, receiving antibiotics. Tobaccoism, educated on smoking cessation COPD, managed by Dr. Falcon Metabolic acidosis, improving. Continue to monitor Hypokalemia, hypomagnesemia, being replaced. Clinical Quality Measures DVT/VTE Risk/Contraindication: Risk Factor Score Per Nursin RFS Level Per Nursing on Admit: 4+=Very High CECILLE MONTIEL MD Mar 21, 2017 09:02
[2017-03-21] MEDS ORDERED: DIGOXIN 0.25 MG/ML (LANOXIN) 2 ML AMP IV NR (09:07)
[2017-03-21] MEDS: ASPIRIN E.C. 325 MG (ECOTRIN) TABLET PO SCH (09:11)
[2017-03-21] MEDS: PANTOPRAZOLE 40 MG/10 ML (PROTONIX) VIAL IV SCH ×2 (09:41→21:02)
[2017-03-21] MEDS: ENOXAPARIN 100 MG/1 ML (LOVENOX) SYR SC SCH ×2 (09:42→21:02)
[2017-03-21] MEDS: NS IV 1000 ML 1,000 ML IV SCH ×3 (09:58→18:28)
[2017-03-21] MEDS ORDERED: GENTAMICIN 40 MG/ML 2 ML INJ SDV IV SCH (10:00)
--- NOTE | 2017-03-21 10:05 | Diagnostic Imaging Report ---
CT of the neck and chest without contrast. INDICATION: COPD, pneumonia. TECHNIQUE: Contiguous axial sections were taken from the midportion of the skull to the lung apices. Subsequently additional images were taken through the thorax. Intravenous contrast was not administered. The previous CT chest, abdomen and pelvis exam performed on 06/26/12 noted emphysematous changes involving both lungs, particularly the upper lobes but failed to show any sign of acute cardiopulmonary abnormality. The CT exam also noted hepatomegaly. The plain film examination of the chest performed earlier today indicated left lower lobe atelectasis/infiltrate. There is also question of pneumonia/atelectasis involving the right midlung. On this exam, there is atelectasis/infiltrate in both lung bases. There is also a very small area of pneumonia/atelectasis along the posterior aspect of the right midlung. The upper lungs are clear. The emphysematous changes seen on the prior study do seem more prominent on this exam. The heart size is within normal limits and stable when compared to prior exam. Coronary artery calcifications are again noted. The aorta is not abnormally dilated and stable when compared to the prior study. There is no mediastinal or hilar adenopathy identified, but this exam is limited in evaluation of adenopathy due to the absence of intravenous contrast. Few small subcentimeter mediastinal nodes are again visualized. The sections through the upper abdomen again show the liver is enlarged. The spleen is prominent as well. The images through the neck failed to show any sign of a mass or adenopathy. The thyroid gland, the submandibular glands and the parotid glands are fairly within normal limits. The intracranial contents, where visualized show no sign of acute abnormality. The bone windows are unremarkable for fracture or for destructive lesion. There is degenerative disc and bony disease throughout the mid and lower cervical spine. There is also at least moderate degenerative disc and bony disease at the T5-T6 level. There is no fracture or acute bony abnormality evident. IMPRESSION: 1. There is mild bibasilar pneumonia/atelectasis. There may be a very small amount of pneumonia/atelectasis in the right midlung as well. No other acute cardiopulmonary abnormality is noted. 2. The emphysematous changes involving both lungs seen previously are again evident and perhaps somewhat worse than on the prior study in 2012. 3. There is no mass or adenopathy in the neck. 4. There is no sign of an acute bony abnormality, but there is degenerative disc and bony disease in the lower cervical spine and at T5-T6. And report Dictated by: Dictated on workstation # [id number]
[2017-03-21] MEDS ORDERED: PANT40TA3 PO (11:32)
[2017-03-21] MEDS ORDERED: TIOT4MIS3 INH (11:32)
[2017-03-21] MEDS ORDERED: CYAN500T2 PO (11:32)
[2017-03-21] MEDS ORDERED: MORP100T37 PO (11:32)
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
[2017-03-21] MEDS: DILTIAZEM DRIP 100 MG/NS 100 ML IV SCH ×2 (15:55)
[2017-03-21] MEDS: DIGOXIN 0.25 MG (LANOXIN) TAB PO SCH (16:37)
[2017-03-21] MEDS: morphine ER 100 MG (MS CONTIN) TAB PO SCH (18:24)
[2017-03-21] MEDS: ATORVASTATIN 40 MG (LIPITOR) TABLET PO SCH (21:02)
[2017-03-21] MEDS: VANCOMYCIN 1250 MG/NS 250 ML IVPB IV SCH ×2 (21:02)
[2017-03-21 23:21] LABS: CALCIUM IONIZED 1.15 mmol/L (1.16-1.32); CORRECTED IONIZED CALCIUM 1.1 mmol/L (1.16-1.32)
[2017-03-22] VITALS (24 sets, daily range): BP systolic 91–135; BP diastolic 59–114
[2017-03-22] MEDS: PIPERACILLIN/TAZOBACTAM 4.5 GM/NS100 ML IVPB IV SCH ×4 (00:42→08:19)
[2017-03-22] MEDS: RT-ALBUTEROL/IPRATROPIUM 3 ML (DUONEB) VIAL INH SCH ×4 (02:28→19:59)
[2017-03-22] MEDS: methylPREDNISolone 40 MG/ML (Solu-MEDROL) VIAL IV SCH ×2 (02:39→14:55)
[2017-03-22] MEDS: NS IV 1000 ML 1,000 ML IV SCH ×2 (04:10→20:41)
[2017-03-22 05:24] LABS: RED BLOOD COUNT 3.67 10^6/uL (4.35-5.85); RED CELL DISTRIBUTION WIDTH 15.8 % (10.0-14.5); WHITE BLOOD COUNT 10.5 10^3/uL (4.3-11.0)
[2017-03-22 05:46] LABS: ANION GAP 11 MMOL/L (5-14); BLOOD UREA NITROGEN 19 MG/DL (7-18); BUN/CREATININE RATIO 25; CALCIUM 8.2 MG/DL (8.5-10.1); CARBON DIOXIDE 19 MMOL/L (21-32); CHLORIDE 105 MMOL/L (98-107); CREATININE SERUM 0.77 MG/DL (0.60-1.30); GFR ESTIMATED > 60; GLUCOSE 130 MG/DL (70-105); MAGNESIUM 2.1 MG/DL (1.8-2.4); PHOSPHORUS 4.1 MG/DL (2.3-4.7); POTASSIUM 3.7 MMOL/L (3.6-5.0); SODIUM 135 MMOL/L (135-145)
[2017-03-22 05:54] LABS: DIGOXIN 0.85 NG/ML (0.80-2.00)
[2017-03-22] MEDS: POTASSIUM CL 10MEQ/50ML IVPB 50 ML IV SCH (06:08)
[2017-03-22] MEDS: MAGNESIUM 1 GM/100 ML IVPB 100 ML IV SCH (06:08)
[2017-03-22] MEDS: KCL 20 MEQ TAB (K-DUR) PO SCH (06:08)
--- NOTE | 2017-03-22 06:39 | Pulmonary Progress Note ---
Subjective Time Seen by Provider: 06:59 Subjective/Events-last exam Pt is doing better. No complications Exam Exam Vital Signs Date Time Temp Pulse Resp B/P (MAP) Pulse Ox O2 Delivery O2 Flow Rate FiO2 03/22/17 06:00 65 12 107/81 95 Nasal Cannula 7.00 03/22/17 05:00 57 18 103/66 94 Nasal Cannula 7.00 03/22/17 04:05 97.3 High Flow N/C 7.00 03/22/17 04:00 63 17 117/59 95 Nasal Cannula 7.00 03/22/17 04:00 94 High Flow N/C 7.00 03/22/17 03:00 63 17 108/75 92 Nasal Cannula 5.00 03/22/17 02:30 92 Nasal Cannula 5.00 03/22/17 02:00 62 13 103/73 92 Nasal Cannula 5.00 03/22/17 01:00 58 17 107/75 92 Nasal Cannula 5.00 03/22/17 01:00 73 03/22/17 00:44 96.9 Nasal Cannula 5.00 03/22/17 00:00 92 Nasal Cannula 5.00 03/22/17 00:00 58 16 96/69 93 Nasal Cannula 4.00 03/21/17 23:00 63 16 97/58 90 Nasal Cannula 4.00 03/21/17 22:09 92 Nasal Cannula 4.00 03/21/17 22:00 70 16 97/69 90 Nasal Cannula 4.00 03/21/17 21:00 68 23 108/63 91 Nasal Cannula 4.00 03/21/17 20:00 93 Nasal Cannula 4.00 03/21/17 20:00 68 10 106/85 95 Nasal Cannula 4.00 03/21/17 19:56 97.5 75 22 110/70 97 Nasal Cannula 4.00 03/21/17 19:00 79 03/21/17 19:00 79 30 107/74 92 Nasal Cannula 4.00 03/21/17 18:09 95 Nasal Cannula 4.00 03/21/17 18:00 73 26 113/96 98 Nasal Cannula 4.00 03/21/17 17:00 73 28 103/85 95 Nasal Cannula 4.00 03/21/17 16:39 98.0 03/21/17 16:00 95 Nasal Cannula 3.00 03/21/17 16:00 73 20 95/85 94 Nasal Cannula 4.00 03/21/17 15:00 73 27 72/39 92 Nasal Cannula 4.00 03/21/17 14:41 94 Nasal Cannula 4.00 03/21/17 14:00 73 10 120/67 90 Nasal Cannula 4.00 03/21/17 13:00 69 16 95/66 90 Nasal Cannula 4.00 03/21/17 13:00 66 03/21/17 12:30 98.1 03/21/17 12:00 93 Nasal Cannula 4.00 03/21/17 12:00 71 12 97/57 93 Nasal Cannula 4.00 03/21/17 11:00 66 24 111/72 91 Nasal Cannula 4.00 03/21/17 10:44 91 Nasal Cannula 4.00 03/21/17 10:00 Nasal Cannula 4.00 03/21/17 10:00 75 24 105/73 92 Nasal Cannula 3.00 03/21/17 09:00 67 13 92/65 91 Nasal Cannula 3.00 03/21/17 08:08 98.1 83 14 90/65 92 Nasal Cannula 3.00 03/21/17 08:00 95 Nasal Cannula 3.00 03/21/17 07:06 93 Nasal Cannula 3.00 03/21/17 07:00 55 13 82/43 92 Nasal Cannula 2.00 03/21/17 07:00 62 I & O 03/22/17 07:00 Intake Total 5137.5 ml Output Total 2400 ml Balance 2737.5 ml General Appearance: No Apparent Distress, WD/WN, Chronically ill HEENT: Normal ENT Inspection Neck: Normal Inspection Respiratory: Decreased Breath Sounds (distant) Cardiovascular: Irregularly Irregular Capillary Refill: Less Than 3 Seconds Peripheral Pulses: 2+ Radial Pulses (R), 2+ Radial Pulses (L) Extremity: Normal Capillary Refill, Normal Inspection, Normal Range of Motion, Non Tender, No Calf Tenderness, No Pedal Edema Neurologic/Psychiatric: Alert, Oriented x3, No Motor/Sensory Deficits, Normal Mood/Affect Skin: Normal Color Lymphatic: No Adenopathy Results Lab Laboratory Tests 03/20/17 17:55 03/21/17 04:50 03/22/17 05:00 03/22/17 05:10 Assessment/Plan Assessment/Plan Severe Sepsis with endocarditis and PNA -Continue Zosyn, vancomycin, gent tricuspid vegitation probably secondary to endocarditis - per Dr. Singh (Echo report pending) -PT denies IVD use, Pt had all teeth pulled 2 months ago. At that time he had gingivitis which is now improved. -2011 echo showed moderate tricuspid regurgitation however no structural heart disease -Pt was admitted for about 38 hrs will go ahead and order UDS to see if anything shows up. -Dr. Singh following -Abx therapy will d/w cardiology and pharmacy Hypotension - resolved COPDAE -Solumedrol 40 IV Q 6 -- change to Q12 -SVNS duoneb Q4 and Q2 PRN -Change to QID Metabolic lactic acidosis -IVF -Monitor Aflutter with RVR -cardiology following GI/DVT ppx -currently on protonix 40mg BID -- secondary to HB dropping rapidly -check occult stool -Lovenox currently -SCDs - pt is refusing PT is doing better will transfer to 4th floor if ok with cardiology. 233 Clinical Quality Measures DVT/VTE Risk/Contraindication: Risk Factor Score Per Nursin RFS Level Per Nursing on Admit: 4+=Very High CONCEPCION GUZMAN DO Mar 22, 2017 06:39
[2017-03-22] MEDS ORDERED: TROUGH ORDER-PHARMACY XX ONE (07:00)
[2017-03-22 07:44] LABS: CALCIUM PH 7.32
[2017-03-22] MEDS: DIGOXIN 0.25 MG (LANOXIN) TAB PO SCH (08:18)
[2017-03-22] MEDS: PANTOPRAZOLE 40 MG/10 ML (PROTONIX) VIAL IV SCH ×2 (08:19→20:40)
[2017-03-22] MEDS: VANCOMYCIN 1250 MG/NS 250 ML IVPB IV SCH ×2 (08:19)
[2017-03-22] MEDS: morphine ER 100 MG (MS CONTIN) TAB PO SCH ×2 (08:19→18:23)
[2017-03-22] MEDS: ASPIRIN E.C. 325 MG (ECOTRIN) TABLET PO SCH (08:19)
[2017-03-22] MEDS: ENOXAPARIN 100 MG/1 ML (LOVENOX) SYR SC SCH (08:20)
[2017-03-22] MEDS ORDERED: PANTOPRAZOLE 40 MG (PROTONIX) TAB PO SCH (09:00)
--- NOTE | 2017-03-22 09:10 | Diagnostic Imaging Report ---
Portable erect AP chest at 601 hours. INDICATION: Shortness of breath. FINDINGS: The cardiomegaly and pulmonary congestion and left lower lobe atelectasis/infiltrate seen on the prior exam of 03/21/17 are again evident. There is perhaps somewhat greater involvement of the left lung base by atelectasis/infiltrate and fluid than noted on the prior exam as the left hemidiaphragm is now completely obscured. The right hemidiaphragm is fairly well maintained. The lung apices remain clear. The mediastinum is not widened. The osseous structures are intact. IMPRESSION: There is persistent cardiomegaly and pulmonary congestion. There is somewhat greater involvement of the left lung base by atelectasis/infiltrate and fluid. A followup study would be recommended for continued evaluation. Dictated by: Dictated on workstation # [id number]
[2017-03-22] MEDS: RT-ADVAIR HFA 115/21 MCG PER PUFF IH SCH ×2 (09:51→19:59)
[2017-03-22] MEDS: SODIUM CHLORIDE IV SCH ×6 (12:36→20:40)
[2017-03-22] MEDS: NAFCILLIN IV SCH ×6 (12:36→20:40)
--- NOTE | 2017-03-22 13:21 | Diagnostic Imaging Report ---
EXAMINATION: Portable erect AP chest obtained at 1243h. INDICATION: PICC line insertion. In the interval since the exam performed earlier today a right-sided PICC line has been inserted. The tip of line overlies the distal superior vena cava and seems to be in good position. There is no sign of a pneumothorax and the overall appearance of the chest has not changed significantly otherwise. IMPRESSION: There has been insertion of a right-sided PICC line without apparent complication. A followup study would be recommended for continued evaluation. Dictated by: Dictated on workstation # [id number]
[2017-03-22] MEDS: DILTIAZEM DRIP 100 MG/NS 100 ML IV SCH ×2 (14:00)
--- NOTE | 2017-03-22 14:03 | Progress Note-Hospitalist ---
Standard Progress Note Progress Notes/Assess & Plan Date Seen 03/22/17 Time Seen by Provider: 13:56 Diagnosis 1.sepsis. 2.echocardiogram consistent with bacterial endocarditis/tricuspid valve. 3.pyuria/UTI. 4.atrial fibrillation presumably new. 5.prescription narcotic dependency. Assess & Plan/Chief Complaint The patient reports he feels much better today and is sitting in a chair at the bedside. The cultures confirm MSSA status. Arrangements are being made for a long-term IV access. I am told that Dr. Singh has discussed the patient with infectious disease in [place] and the recommendation would be for nafcillin IV at home with a CAD pump. While I was in the room it appeared the patient converted from atrial fibrillation to sinus rhythm. Physical exam: Lungs are clear to auscultation. CV is regular without murmur. Impression: Bacterial endocarditis, MSSA. 2.atrial fibrillation with apparent conversion to sinus rhythm. Plan: Deferred to cardiology. Labs Laboratory Tests 03/20/17 17:55 03/21/17 04:50 03/22/17 05:00 03/22/17 05:10 TRISTAN VERA MD Mar 22, 2017 14:03
--- NOTE | 2017-03-22 15:01 | Cardiology Progress Note ---
Subjective Date Seen by Provider: Mar 22, 2017 Time Seen by Provider: 14:59 Subjective/Events-last exam patient is sitting in a chair, feeling better, getting breathing treatment, converted to sinus rhythm. Review of Systems General: No Chills, No Night Sweats, No Fatigue, No Malaise, No Appetite, No Other HEENT: No Head Aches, No Visual Changes, No Eye Pain, No Ear Pain, No Dysphasia , No Sinus Congestion, No Post Nasal Drip, No Sore Throat, No Other Pulmonary: No Dyspnea, No Cough, No Pleuritic Chest Pain, No Other Cardiovascular: No: Chest Pain, Edema, Lt Headedness, Orthopnea, Other, Palpitations, Paroxysmal Noc. Dyspnea Objective-Cardiology Exam Last Set of Vital Signs Vital Signs 03/20/17 03/22/17 03/22/17 03/22/17 22:16 06:00 09:47 13:28 Pulse 64 Resp 12 B/P (MAP) 107/81 Pulse Ox 97 FiO2 21 Capillary Refill : Less Than 3 Seconds I&O Intake and Output 03/22/17 00:00 Intake Total 6637.5 ml Output Total 3250 ml Balance 3387.5 ml Intake Oral 1720 ml IV Total 4917.5 ml Output Urine Total 3250 ml General: Alert, Oriented X3, Cooperative HEENT: Atraumatic, PERRLA Neck: Supple, No JVD, No Thyromegaly Lungs: Clear to Auscultation, Normal Air Movement Heart: Regular Rate, Normal S1, Normal S2, No Murmurs Abdomen: Normal Bowel Sounds, Soft, No Tenderness, No Hepatosplenomegaly, No Masses Extremities: No Clubbing, No Cyanosis, No Edema, Normal Pulses, No Tenderness/ Swelling Skin: No Rashes, No Breakdown, No Significant Lesion Neuro: Normal Gait, Normal Speech, Strength at 5/5 X4 Ext, Normal Tone, Sensation Intact Psych/Mental Status: Mental Status NL, Mood NL Results Lab Laboratory Tests 03/22/17 05:00 03/22/17 05:10 A/P-Cardiology Admission Diagnosis Sepsis UTI Atrial fibrillation Hypotension Assessment/Plan Sepsis, blood culture grew staph aureus, receiving antibiotic Tricuspid valve vegetation, moderate tricuspid regurgitation, preserved left ventricular function, started on nafcillin, will need treatment for 6 weeks Paroxysmal atrial fibrillation, converted to sinus rhythm after receiving digoxin. Blood pressure stable. I will change Lovenox to Eliquis Anterior chest wall pain, musculoskeletal mainly with coughing. Unlikely to be cardiac at this time, had some ST depression while his heart rate is 140, planning to evaluate stress test as an outpatient. Generalized weakness and fatigue secondary to sepsis Urinary tract infection, receiving antibiotics. Tobaccoism, educated on smoking cessation COPD, managed by Dr. Falcon Metabolic acidosis, improving. Continue to monitor Hypokalemia, hypomagnesemia, being replaced. Clinical Quality Measures DVT/VTE Risk/Contraindication: Risk Factor Score Per Nursin RFS Level Per Nursing on Admit: 4+=Very High CECILLE MONTIEL MD Mar 22, 2017 15:01
[2017-03-22] MEDS ORDERED: NAFC2FRO IV (15:04)
[2017-03-22] MEDS: ATORVASTATIN 40 MG (LIPITOR) TABLET PO SCH (20:42)
[2017-03-22] MEDS: APIXABAN 5 MG (ELIQUIS) TABLET PO SCH (20:42)
[2017-03-23] VITALS (23 sets, daily range): BP systolic 111–142; BP diastolic 68–106
[2017-03-23] MEDS: SODIUM CHLORIDE IV SCH ×12 (00:45→21:55)
[2017-03-23] MEDS: NAFCILLIN IV SCH ×12 (00:45→21:55)
[2017-03-23] MEDS: methylPREDNISolone 40 MG/ML (Solu-MEDROL) VIAL IV SCH ×2 (02:11→13:45)
[2017-03-23 05:27] LABS: BASOPHILS % (AUTO) 0 % (0-10); EOSINOPHILS % (AUTO) 0 % (0-10); LYMPHOCYTES # (AUTO) 0.5 X 10^3 (1.0-4.0); LYMPHOCYTES % (AUTO) 5 % (12-44); MEAN CORPUSCULAR HEMOGLOBIN 27 PG (25-34); MEAN CORPUSCULAR HGB CONC 32 G/DL (32-36); MEAN CORPUSCULAR VOLUME 83 FL (80-99); MEAN PLATELET VOLUME 11.1 FL (7.4-10.4); MONOCYTES # (AUTO) 0.8 X 10^3 (0.0-1.0); MONOCYTES % (AUTO) 9 % (0-12); NEUTROPHILS # (AUTO) 7.3 X 10^3 (1.8-7.8); NEUTROPHILS % (AUTO) 86 % (42-75); PLATELET COUNT 174 10^3/uL (130-400); RED CELL DISTRIBUTION WIDTH 16.2 % (10.0-14.5); WHITE BLOOD COUNT 8.5 10^3/uL (4.3-11.0)
[2017-03-23 05:49] LABS: ANION GAP 10 MMOL/L (5-14); BLOOD UREA NITROGEN 32 MG/DL (7-18); BUN/CREATININE RATIO 32; CARBON DIOXIDE 19 MMOL/L (21-32); CHLORIDE 105 MMOL/L (98-107); CREATININE SERUM 0.99 MG/DL (0.60-1.30); GFR ESTIMATED > 60; GLUCOSE 116 MG/DL (70-105); MAGNESIUM 2.2 MG/DL (1.8-2.4); PHOSPHORUS 4.4 MG/DL (2.3-4.7); POTASSIUM 4.2 MMOL/L (3.6-5.0); SODIUM 134 MMOL/L (135-145)
[2017-03-23] MEDS: KCL 20 MEQ TAB (K-DUR) PO SCH (06:00)
[2017-03-23] MEDS: MAGNESIUM 1 GM/100 ML IVPB 100 ML IV SCH (06:00)
--- NOTE | 2017-03-23 07:06 | Pulmonary Progress Note ---
Subjective Time Seen by Provider: 07:10 Subjective/Events-last exam Pt feels better still having SOB. Pt still requiring 5liters of oxygen. Pt desaturated to 88% on 3 liters Exam Exam Vital Signs Date Time Temp Pulse Resp B/P (MAP) Pulse Ox O2 Delivery O2 Flow Rate FiO2 03/23/17 06:00 56 21 118/81 95 High Flow N/C 5.00 03/23/17 05:00 52 16 129/86 95 High Flow N/C 5.00 03/23/17 04:00 High Flow N/C 5.00 03/23/17 04:00 47 11 127/92 96 High Flow N/C 5.00 03/23/17 03:00 51 10 130/89 95 High Flow N/C 5.00 03/23/17 02:00 47 12 114/87 96 High Flow N/C 5.00 03/23/17 01:00 62 23 116/77 96 High Flow N/C 5.00 03/23/17 01:00 61 03/23/17 00:00 97.9 57 15 127/93 94 High Flow N/C 5.00 03/23/17 00:00 97.3 High Flow N/C 5.00 03/23/17 00:00 High Flow N/C 5.00 03/22/17 23:00 61 20 126/80 93 High Flow N/C 5.00 03/22/17 22:00 58 17 135/79 92 High Flow N/C 5.00 03/22/17 21:00 54 24 123/87 96 High Flow N/C 5.00 03/22/17 20:30 High Flow N/C 5.00 03/22/17 20:00 44 14 123/85 91 High Flow N/C 3.00 03/22/17 20:00 High Flow N/C 3.00 03/22/17 20:00 97.5 High Flow N/C 3.00 03/22/17 19:59 92 Nasal Cannula 3.00 03/22/17 19:00 55 03/22/17 19:00 52 20 122/94 92 Nasal Cannula 3.00 03/22/17 18:00 66 31 126/92 93 Nasal Cannula 3.00 03/22/17 17:00 61 15 134/93 93 Nasal Cannula 3.00 03/22/17 16:06 98.5 65 23 127/67 92 Nasal Cannula 3.00 03/22/17 16:05 High Flow N/C 3.00 03/22/17 15:00 60 20 134/114 98 Nasal Cannula 3.00 03/22/17 14:53 96 Nasal Cannula 5.00 03/22/17 14:00 58 11 125/99 97 Nasal Cannula 5.00 03/22/17 13:28 64 03/22/17 13:00 62 20 119/80 94 Nasal Cannula 5.00 03/22/17 12:00 64 17 118/75 95 Nasal Cannula 5.00 03/22/17 12:00 97.1 High Flow N/C 5.00 03/22/17 12:00 High Flow N/C 5.00 03/22/17 11:00 62 16 98/72 92 Nasal Cannula 5.00 03/22/17 10:00 51 16 121/89 95 Nasal Cannula 5.00 03/22/17 09:47 97 Nasal Cannula 7.00 03/22/17 09:00 61 21 91/83 94 Nasal Cannula 7.00 03/22/17 08:20 High Flow N/C 7.00 03/22/17 08:00 56 7 112/76 94 Nasal Cannula 7.00 03/22/17 07:50 97.8 General Appearance: No Apparent Distress, WD/WN, Chronically ill HEENT: Normal ENT Inspection Neck: Normal Inspection Respiratory: Accessory Muscle Use (conversational dyspnea), Decreased Breath Sounds (distant), No Wheezing Cardiovascular: Irregularly Irregular Capillary Refill: Less Than 3 Seconds Peripheral Pulses: 2+ Radial Pulses (R), 2+ Radial Pulses (L) Extremity: Normal Capillary Refill, Normal Inspection, Normal Range of Motion, Non Tender, No Calf Tenderness, No Pedal Edema Neurologic/Psychiatric: Alert, Oriented x3, No Motor/Sensory Deficits, Normal Mood/Affect Skin: Normal Color Lymphatic: No Adenopathy Results Lab Laboratory Tests 03/22/17 05:00 03/22/17 05:10 03/23/17 05:15 Assessment/Plan Assessment/Plan Severe Sepsis with endocarditis and PNA with MSSA -Continue nafcillin IV tricuspid vegitation probably secondary to endocarditis - per Dr. Singh (Echo report pending) -PT denies IVD use, Pt had all teeth pulled 2 months ago. At that time he had gingivitis which is now improved. -2011 echo showed moderate tricuspid regurgitation however no structural heart disease -Dr. Singh following COPDAE -Solumedrol 40 IV Q12 -SVNS duoneb QID Metabolic lactic acidosis -IVF -Monitor Aflutter with RVR -cardiology following GI/DVT ppx -currently on protonix 40mg BID -- secondary to HB dropping rapidly -check occult stool -Lovenox currently -SCDs - pt is refusing PT is doing better will transfer to 4th floor if ok with cardiology. 233 Clinical Quality Measures DVT/VTE Risk/Contraindication: Risk Factor Score Per Nursin RFS Level Per Nursing on Admit: 4+=Very High CONCEPCION GUZMAN DO Mar 23, 2017 07:06
[2017-03-23] MEDS: RT-ADVAIR HFA 115/21 MCG PER PUFF IH SCH ×2 (07:10→18:36)
[2017-03-23] MEDS: RT-ALBUTEROL/IPRATROPIUM 3 ML (DUONEB) VIAL INH SCH ×2 (07:10→14:42)
--- NOTE | 2017-03-23 07:10 | Diagnostic Imaging Report ---
INDICATION: Pneumonia COMPARISON: 03/22 FINDINGS: Bilateral infiltrates not significantly changed with background COPD and air trapping as well as upper limits heart size unchanged. Right PICC at the SVC. IMPRESSION: No significant change. Dictated by: Dictated on workstation # [id number]
[2017-03-23] MEDS ORDERED: CALCIUM GLUC. 10% 4.65 MEQ/10 ML VIAL IV ONE (07:15)
[2017-03-23] MEDS ORDERED: CALCIUM GLUCONATE 10% INJ 4.65 MEQ in NS (IVPB) 50 ML IV NR (07:15)
[2017-03-23] MEDS: POTASSIUM CL 10MEQ/50ML IVPB 50 ML IV SCH (07:35)
[2017-03-23] MEDS: PANTOPRAZOLE 40 MG/10 ML (PROTONIX) VIAL IV SCH (08:44)
[2017-03-23] MEDS: APIXABAN 5 MG (ELIQUIS) TABLET PO SCH ×2 (08:45→21:03)
[2017-03-23] MEDS: morphine ER 100 MG (MS CONTIN) TAB PO SCH ×2 (08:45→19:08)
[2017-03-23] MEDS: DIGOXIN 0.25 MG (LANOXIN) TAB PO SCH (08:45)
[2017-03-23] MEDS: DILTIAZEM DRIP 100 MG/NS 100 ML IV SCH ×2 (08:46)
--- NOTE | 2017-03-23 09:01 | Cardiology Progress Note ---
Subjective Date Seen by Provider: Mar 23, 2017 Time Seen by Provider: 08:50 Subjective/Events-last exam Patient in bed. Continues to be short of breath. Denies any CP. Review of Systems General: No Night Sweats, Fatigue, Malaise HEENT: No Visual Changes, No Dysphasia, No Sore Throat Pulmonary: Dyspnea, Cough, No Pleuritic Chest Pain Cardiovascular: No: Chest Pain, Palpitations, Orthopnea, Paroxysmal Noc. Dyspnea, Edema Gastrointestinal: No: Nausea, Vomiting, Abdominal Pain Genitourinary: No Dysuria, No Frequency Musculoskeletal: No: neck pain, back pain Neurological: No: Weakness, Numbness, Change in speech, Confusion Objective-Cardiology Exam Last Set of Vital Signs Vital Signs 03/20/17 03/23/17 22:16 08:00 Temp 98.6 Pulse 71 Resp 19 B/P (MAP) 127/81 Pulse Ox 93 O2 Delivery High Flow N/C O2 Flow Rate 3.00 FiO2 21 Capillary Refill : Less Than 3 Seconds I&O Intake and Output 03/24/17 00:00 Intake Total 450 ml Output Total 500 ml Balance -50 ml Intake Oral 350 ml IV Total 100 ml Output Urine Total 500 ml General: Alert, Oriented X3, Cooperative HEENT: Atraumatic, PERRLA Neck: Supple, No JVD, No Thyromegaly Lungs: Clear to Auscultation, Normal Air Movement Heart: Regular Rate, Normal S1, Normal S2, No Murmurs Abdomen: Normal Bowel Sounds, Soft, No Tenderness, No Hepatosplenomegaly, No Masses Extremities: No Clubbing, No Cyanosis, No Edema, Normal Pulses, No Tenderness/ Swelling Skin: No Rashes, No Breakdown, No Significant Lesion Neuro: Normal Gait, Normal Speech, Strength at 5/5 X4 Ext, Normal Tone, Sensation Intact Psych/Mental Status: Mental Status NL, Mood NL Results Lab Laboratory Tests 03/23/17 05:15 A/P-Cardiology Admission Diagnosis Sepsis UTI Atrial fibrillation Hypotension Assessment/Plan Sepsis, blood culture grew staph aureus, receiving antibiotic Tricuspid valve vegetation, moderate tricuspid regurgitation, preserved left ventricular function, started on nafcillin, will need treatment for 6 weeks Paroxysmal atrial fibrillation, converted to sinus rhythm after receiving digoxin. Blood pressure stable. I will change Lovenox to Eliquis Anterior chest wall pain, musculoskeletal mainly with coughing. Unlikely to be cardiac at this time, had some ST depression while his heart rate is 140, planning to evaluate stress test as an outpatient. Generalized weakness and fatigue secondary to sepsis Urinary tract infection, receiving antibiotics. Tobaccoism, educated on smoking cessation COPD, managed by Dr. Falcon Metabolic acidosis, improving. Continue to monitor Hypokalemia, hypomagnesemia, being replaced. Clinical Quality Measures DVT/VTE Risk/Contraindication: Risk Factor Score Per Nursin RFS Level Per Nursing on Admit: 4+=Very High VU CHILEL Mar 23, 2017 09:01
--- NOTE | 2017-03-23 12:15 | Progress Note-Hospitalist ---
Progress Note HPI/CC on Admission The patient is a 56-year-old white male who was brought to the emergency room on the afternoon of 03/20. He was apparently somewhat confused and weak. Apparently his had last seen him on Tuesday. He appeared to be somewhat ill and she had been scheduled to leave town. When she returned on Tuesday she found him to be very ill-appearing and confused. He was too weak to perform appeared to have generalized loss of energy and lightheadedness with some apparent shortness of breath. On presentation to the emergency room he was noted to be in atrial fibrillation. Significant other laboratory showed a white count of 12,200, an UA with greater than 100 WBCs per high-powered field, sodium of 126, lactic acid of 3.12, creatinine of 1.47. Vital signs showed controlled ventricular rate. Blood pressure initially was 87/65. His rhythm was atrial fibrillation and he states that he had no knowledge of any prior irregularity. His O2 was 91 percent and he is a smoker. He stated that he considers himself to be in generally good health. Progress Notes/Assess & Plan Date Seen 03/23/17 Time Seen by Provider: 09:30 Diagonsis/Assessment & Plan RT Review: Qualifies for 3L continuous O2 SW Review: Pt will need to go home on Nafcillin infusion for 6 weeks Yesterday was the first day he converted to normal sinus rhythm Cardiology communicated with infectious disease Patient Interview: Pt confirms being in Dr. Lugo' care before I took over. Pt states that Dr. Lugo was okay with him using his inhaler. Pt confirms having breathing treatments but he does not believe that they have been as effective as his inhaler. Pt states that his inhaler works the best for him and was upset that it was taken from him. I assured him that he will be able to use this after it has been charted. Pt states that he lives in [place] with his and his step son. Pt prefers not to confirm PCP. Pt does not want to involve his PCP at this time. Pt was informed that he will need abx at home Pt states he would like to try to ambulate by himself. Pt was informed that he will move to 4th floor and will be more able to ambulate by himself. Physical exam stable. Lungs sound perfect. Pt denies having a BM, but he states that he just started eating yesterday AFVSS, Pleasant, chronically ill RRR, CTAB diminished BS all landry No edema Laboratory Tests 03/23/17 05:15 Assessment: Acute endocarditis with MSSA Severe COPD AF now converted to NSR Anemia of chronic illness Severe weakness Plan: 3L continuous O2 Home health PT DC tomorrow if strong enough but I did place PT/OT orders and IRU in case he is too weak to return home Scribed by Catalina Howell under the direct supervision of Dr. Parnell. MANISH PARNELL DO Mar 23, 2017 12:15
--- NOTE | 2017-03-23 13:58 | Occupational Therapy Eval ---
OT Evaluation-General/PLF Medical Diagnosis Admission Date Mar 20, 2017 at 19:55 Medical Diagnosis: Sepsis, pneumonia, COPD exacerbation, A-flutter Onset Date: Mar 20, 2017 Therapy Diagnosis Therapy Diagnosis: decreased activity tolerance Height/Weight Height (Feet): 5 Height (Inches): 11.00 Weight (Pounds): 199 Weight (Ounces): 2.0 Precautions Precautions/Isolations: Standard Precautions Safety Interventions: None Referral Physician: Cristobal Medical History Pertinent Medical History: COPD, GERD Additional Medical History Arachnoiditis ossificans, chronic back pain, hernia surgery Reviewed History: Yes Social History Home: Single Level Current Living Status: Spouse Entry Into Home: Stairs Without Railing Steps Into Home: 2 ADL-Prior Level of Function ADL PLOF Comments Pt states his level of function varies day to day based on amount of back pain. Pt states some days he can complete ADLs independently, but others he requires assist. Pt uses cane, walker, or w/c depending on pain level. 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 DME/Equipment: Bath Chair, Tub/Shower OT Current Status Subjective Pt in bed, agrees to treatment. Pt reports 4/10 back pain. Pt requests to sit up in chair, RN agreeable. Mental Status/Objective Patient Orientation: Person, Place, Situation Attachments: IV, Oxygen Current Glasses/Contacts: Yes Dentures/Partials: Yes Hand Dominance: Right ADL-Treatment ADL-Current Pt supine to sit without assistance. Pt able to perform sit to stand without assistance. Transfer to chair with supervision and assist to manage multiple lines. Pt had minor LOB, but able to self correct. Pt is short of breath with mobility, requires rest break to recover. While seated in chair pt able to use urinal, requires assist to empty it. Pt sitting in chair with RNs present after session. Functional [place] Measure 0=Not Assessed/NA 4=Minimal Assistance 1=Total Assistance 5=Supervision or Setup 2=Maximal Assistance 6=Modified [place] 3=Moderate Assistance 7=Complete IndependenceIRFPAI Quality Coding Scale 6 Independent with activity with or without an assistive device 5 Patient requires set up or clean up by helper. Patient completes activity by themselves 4 Supervision or touching assist (CGA). [place] provide cues , steadying assist 3 The helper provides less than half the effort to complete the activity 2 The helper provides more than half the effort to complete the activity 1 Dependent. The helper does all the effort to complete an activity 7 Patient refused to complete or attempt activity 9 The patient did not perform the activity before the current illness or injury 88 Not attempted due to Medical conditions or safety concerns Education OT Patient Education: Rehab process Teaching Recipient: Patient Teaching Methods: Discussion Response to Teaching: Verbalize Understanding OT Short Term Goals Short Term Goals 1=Demonstrate adherence to instructed precautions during ADL tasks. 2=Patient will verbalize/demonstrate understanding of assistive devices/ modifications for ADL. 3=Patient will improve strength/tolerance for activity to enable patient to perform ADL's. OT Traffic Survey Technician Goals Traffic Survey Technician Goals Time Frame: Mar 30, 2017 Eating (FIM): 6 Grooming(FIM): 6 Bathing(FIM): 5 Upper Body Dressing(FIM): 6 Lower Body Dressing(FIM): 5 Toileting(FIM): 6 Toilet/Commode Transfer(FIM): 6 Additional Goals: 2-Verbalize Understanding, 3-ImproveStrength/Frida 1=Demonstrate adherence to instructed precautions during ADL tasks. 2=Patient will verbalize/demonstrate understanding of assistive devices/ modifications for ADL. 3=Patient will improve strength/tolerance for activity to enable patient to perform ADL's. OT Education/Plan Problem List/Assessment Assessment: Decreased Activ Tolerance, Impaired Self-Care Skills Pt demonstrates decreased activity tolerance impacting ability to perform functional tasks. Pt to benefit from skilled OT intervention for ADL training, transfers, strengthening, and energy conservation techniques as needed to promote increased functional performance and allow safe return home. Discharge Recommendations Plan/Recommendations: Continue POC Treatment Plan/Plan of Care Treatment,Training & Education: Yes Patient would benefit from OT for education, treatment and training to promote independence in ADL's, mobility, safety and/or upper extremity function for ADL' s. Plan of Care: ADL Retraining, Functional Mobility, UE Funct Exercise/Act Treatment Duration: Mar 30, 2017 Frequency: 5 times per week Estimated Hrs Per Day: .5 hour per day Agreement: Yes Rehab Potential: Fair Time/GCodes Start Time: 13:20 Stop Time: 13:45 Total Time Billed (hr/min): 25 Billed Treatment Time 1 visit, JUNE(20minutes) JULIOCESAR CORREA OT Mar 23, 2017 13:58
--- NOTE | 2017-03-23 14:26 | Physical Therapy Evaluation ---
PT Evaluation-General Medical Diagnosis Admission Date Mar 20, 2017 at 19:55 Medical Diagnosis: Sepsis, pneumonia, COPD exacerbation, A-flutter Onset Date: Mar 20, 2017 Therapy Diagnosis Therapy Diagnosis: impaired mobility, strength, endurance Height/Weight Height (Feet): 5 Height (Inches): 11.00 Weight (Pounds): 199 Weight (Ounces): 2.0 Precautions Precautions/Isolations: Standard Precautions Referral Physician: Cristobal Reason for Referral: Evaluation/Treatment Medical History Pertinent Medical History: COPD, GERD, Smoking Additional Medical History chronic back pain, arachnoiditis ossificans, surg (hernia) Current History patient went to ER with confusion and weakness, in afib at ER Reviewed History: Yes Social History Home: Single Level Current Living Status: Spouse Entry Into Home: Stairs Without Railing PT Steps Into Home: 2 Prior/Core FIM Prior Level of Function Functional [place] Measure 0=Not Assessed/NA 4=Minimal Assistance 1=Total Assistance 5=Supervision or Setup 2=Maximal Assistance 6=Modified [place] 3=Moderate Assistance 7=Complete [place] Bed Mobility: 6 Transfers (B,C,W/C) (FIM): 6 Gait: 6 Patient uses a rolling walker and cane for ambulation PT Evaluation-Current Subjective Patient in recliner pre tx, agrees to PT, has pain of 5-6/10 in low back. Pt/Family Goals to be independent at home Objective Patient Orientation: Person, Place, Situation Attachments: Oxygen, IV ROM/Strength Strenght Lower Extremities right lower extremity (hip flexion 3+/5, knee flexion 4/5, knee extension 4/5, dorsiflexion 5/5), left lower extremity (hip flexion 4-/5, knee flexion 4+/5, knee extension 4+/5, dorsiflexion 5/5) Integumentary/Posture Integumentary Patient had 2+ pitting edema in right leg,he states that the swelling and some pain started after getting scratched by a cat, nurse notified Neuromuscular (Tone, Coordination, Reflexes) WNL Sensory Vision: Wears Glasses Hearing: Functional Hand Dominance: Right Sensation Right Lower Extremit: Intact Sensation Left Lower Extremity: Intact Transfers Functional [place] Measure 0=Not Assessed/NA 4=Minimal Assistance 1=Total Assistance 5=Supervision or Setup 2=Maximal Assistance 6=Modified [place] 3=Moderate Assistance 7=Complete [place] Transfers (B, C, W/C) (FIM): 4 Sit to/from Stand: 4 CGA for sit to stand, he was able to stand for several minutes but O2 levels consistently were below 90%, usually around 87%, HR was within normal limits Balance Sitting Static: Normal Sitting Dynamic: Normal Standing Static: Good Standing Dynamic: Good Treatment seated exercises x10 AP, LAQ, hip flexion Assessment/Needs Patient has impaired mobility, strength, endurance, swelling in right leg Rehab Potential: Fair PT Senior Care Goals Senior Care Goals PT Senior Care Goals Time Frame: Mar 30, 2017 Transfers (B,C,W/C) (FIM): 5 Gait (FIM): 2 Distance: 50' Gait Level of Assist: 5 Gait Assistive Device: FWW PT Plan Problem List Problem List: Activity Tolerance, Functional Strength, Safety, Balance, Gait, Transfer, Bed Mobility Treatment/Plan Treatment Plan: Continue Plan of Care Treatment Plan: Bed Mobility, Education, Functional Activity Frida, Functional Strength, Gait, Safety, Therapeutic Exercise, Transfers Treatment Duration: Mar 30, 2017 Frequency: 6 times per week Estimated Hrs Per Day: .25 hour per day (15-30 min) Patient and/or Family Agrees t: Yes Safety Risks/Education Patient Education: Transfer Techniques, Correct Positioning, Safety Issues Teaching Recipient: Patient Teaching Methods: Demonstration, Discussion Response to Teaching: Reinforcement Needed Discharge Recommendations Plan Patient will perform bed mobility and transfer training, balance and endurance training, functional strengthening, stair training, gait training, and education , to improve functional mobility and independence at home. Therapy D/C Recommendations: Home w/ Family Support Time/GCodes Time In: 1400 Time Out: 1420 Total Billed Treatment Time: 20 Total Billed Treatment 1 visit PIYUSH 20' CARLOS MANUEL HARPER PT Mar 23, 2017 14:26
[2017-03-23] MEDS: NS IV 1000 ML 1,000 ML IV SCH (17:44)
[2017-03-23] MEDS: STIOLTO RESPIMAT INHALER INH SCH (18:36)
[2017-03-23] MEDS: ATORVASTATIN 40 MG (LIPITOR) TABLET PO SCH (21:03)
[2017-03-24] VITALS (10 sets, daily range): BP systolic 112–154; BP diastolic 76–97
[2017-03-24] MEDS: methylPREDNISolone 40 MG/ML (Solu-MEDROL) VIAL IV SCH (01:54)
[2017-03-24] MEDS: NAFCILLIN IV SCH ×8 (01:55→11:00)
[2017-03-24] MEDS: SODIUM CHLORIDE IV SCH ×8 (01:55→11:00)
[2017-03-24 04:48] LABS: BASOPHILS % (AUTO) 0 % (0-10); EOSINOPHILS % (AUTO) 0 % (0-10); LYMPHOCYTES # (AUTO) 0.6 X 10^3 (1.0-4.0); LYMPHOCYTES % (AUTO) 8 % (12-44); MEAN CORPUSCULAR HEMOGLOBIN 27 PG (25-34); MEAN CORPUSCULAR HGB CONC 33 G/DL (32-36); MEAN CORPUSCULAR VOLUME 82 FL (80-99); MEAN PLATELET VOLUME 10.1 FL (7.4-10.4); MONOCYTES # (AUTO) 0.8 X 10^3 (0.0-1.0); MONOCYTES % (AUTO) 11 % (0-12); NEUTROPHILS # (AUTO) 5.7 X 10^3 (1.8-7.8); NEUTROPHILS % (AUTO) 81 % (42-75); PLATELET COUNT 212 10^3/uL (130-400); RED BLOOD COUNT 3.62 10^6/uL (4.35-5.85); RED CELL DISTRIBUTION WIDTH 16.1 % (10.0-14.5); WHITE BLOOD COUNT 7.1 10^3/uL (4.3-11.0)
[2017-03-24 05:09] LABS: ANION GAP 8 MMOL/L (5-14); BLOOD UREA NITROGEN 36 MG/DL (7-18); BUN/CREATININE RATIO 38; CALCIUM 7.6 MG/DL (8.5-10.1); CARBON DIOXIDE 19 MMOL/L (21-32); CHLORIDE 106 MMOL/L (98-107); CREATININE SERUM 0.96 MG/DL (0.60-1.30); GFR ESTIMATED > 60; GLUCOSE 89 MG/DL (70-105); PHOSPHORUS 3.7 MG/DL (2.3-4.7); POTASSIUM 4.4 MMOL/L (3.6-5.0); SODIUM 133 MMOL/L (135-145)
[2017-03-24] MEDS: KCL 20 MEQ TAB (K-DUR) PO SCH (06:14)
[2017-03-24] MEDS: DILTIAZEM DRIP 100 MG/NS 100 ML IV SCH ×2 (06:14)
[2017-03-24] MEDS: POTASSIUM CL 10MEQ/50ML IVPB 50 ML IV SCH (06:14)
[2017-03-24] MEDS: MAGNESIUM 1 GM/100 ML IVPB 100 ML IV SCH (06:15)
[2017-03-24] MEDS: STIOLTO RESPIMAT INHALER INH SCH ×2 (06:27→06:32)
[2017-03-24] MEDS ORDERED: PANTOPRAZOLE 40 MG (PROTONIX) TAB PO SCH (07:00)
[2017-03-24] MEDS: RT-ADVAIR HFA 115/21 MCG PER PUFF IH SCH (07:37)
--- NOTE | 2017-03-24 07:53 | Diagnostic Imaging Report ---
INDICATION: Pneumonia. COMPARISON STUDY: Chest from yesterday. FINDINGS: Portable upright view of the chest demonstrates slight improvement of bilateral pulmonary infiltrates. Cardiomegaly is stable. No significant effusions are seen. The right arm PICC line remains in good position. IMPRESSION: Improving bilateral pulmonary infiltrates with stable cardiomegaly. Dictated by: Dictated on workstation # [id number]
--- NOTE | 2017-03-24 08:31 | Cardiology Progress Note ---
Subjective Time Seen by Provider: 08:28 Subjective/Events-last exam Patient sitting up in chair. Reports dyspnea has significantly improved. Denies any CP. Denies dizziness or lightheadedness. Review of Systems General: No Chills, No Night Sweats, Fatigue HEENT: No Visual Changes, No Dysphasia, No Sore Throat Pulmonary: Dyspnea, Cough, No Pleuritic Chest Pain Cardiovascular: Edema (trace BLE), No: Chest Pain, Palpitations, Paroxysmal Noc. Dyspnea Gastrointestinal: No: Nausea, Vomiting, Diarrhea, Constipation Genitourinary: No Dysuria, No Frequency Musculoskeletal: No: neck pain, back pain Neurological: No: Weakness, Numbness, Change in speech, Confusion Objective-Cardiology Exam Last Set of Vital Signs Vital Signs 03/20/17 03/24/17 03/24/17 03/24/17 22:16 06:00 07:00 07:37 Pulse 60 Resp 24 B/P (MAP) 117/86 Pulse Ox 98 O2 Delivery Nasal Cannula O2 Flow Rate 3.00 FiO2 21 Capillary Refill : Less Than 3 Seconds I&O Intake and Output 03/25/17 00:00 Intake Total 600 ml Output Total 600 ml Balance 0 ml Intake Oral 600 ml Output Urine Total 600 ml General: Alert, Oriented X3, Cooperative HEENT: Atraumatic, PERRLA Neck: Supple, No JVD, No Thyromegaly Lungs: Clear to Auscultation, Normal Air Movement Heart: Regular Rate, Normal S1, Normal S2, No Murmurs Abdomen: Normal Bowel Sounds, Soft, No Tenderness, No Hepatosplenomegaly, No Masses Extremities: No Clubbing, No Cyanosis, No Edema, Normal Pulses, No Tenderness/ Swelling Skin: No Rashes, No Breakdown, No Significant Lesion Neuro: Normal Gait, Normal Speech, Strength at 5/5 X4 Ext, Normal Tone, Sensation Intact Psych/Mental Status: Mental Status NL, Mood NL Results Lab Laboratory Tests 03/24/17 04:40 A/P-Cardiology Admission Diagnosis Sepsis UTI Atrial fibrillation Hypotension Assessment/Plan Sepsis, blood culture grew staph aureus, patient improving, receiving antibiotic. Tricuspid valve vegetation, moderate tricuspid regurgitation, preserved left ventricular function, started on nafcillin, will need IV antibiotic treatment for 6 weeks Paroxysmal atrial fibrillation, converted to sinus rhythm after receiving digoxin. Blood pressure stable. Tolerating Eliquis well. Continue to monitor. Anterior chest wall pain, musculoskeletal mainly with coughing. Patient reports improvement. Unlikely to be cardiac at this time, had some ST depression while his heart rate is 140, planning to evaluate stress test as an outpatient. Generalized weakness and fatigue secondary to sepsis, continues to improve. Urinary tract infection, receiving antibiotics. Tobaccoism, educated on smoking cessation COPD, managed by Dr. Falcon Metabolic acidosis, improved. Continue to monitor Hypokalemia, hypomagnesemia, replaced, improved. Continue to monitor. Clinical Quality Measures DVT/VTE Risk/Contraindication: Risk Factor Score Per Nursin RFS Level Per Nursing on Admit: 4+=Very High VU CHILEL Mar 24, 2017 08:31
[2017-03-24] MEDS: DIGOXIN 0.25 MG (LANOXIN) TAB PO SCH (08:32)
[2017-03-24] MEDS: APIXABAN 5 MG (ELIQUIS) TABLET PO SCH (08:32)
[2017-03-24] MEDS: morphine ER 100 MG (MS CONTIN) TAB PO SCH (08:32)
--- NOTE | 2017-03-24 08:40 | Cardiology Progress Note ---
Subjective Date Seen by Provider: Mar 24, 2017 Time Seen by Provider: 08:39 Subjective/Events-last exam patient is sitting in a chair, feeling better, had few episodes of bradycardia last night. No chest pain. Arrangement for home antibiotic is being made. Review of Systems General: No Chills, No Night Sweats, No Fatigue, No Malaise, No Appetite, No Other HEENT: No Head Aches, No Visual Changes, No Eye Pain, No Ear Pain, No Dysphasia , No Sinus Congestion, No Post Nasal Drip, No Sore Throat, No Other Pulmonary: Dyspnea, Cough, No Pleuritic Chest Pain, No Other Cardiovascular: No: Chest Pain, Palpitations, Orthopnea, Paroxysmal Noc. Dyspnea, Edema, Lt Headedness, Other Objective-Cardiology Exam Last Set of Vital Signs Vital Signs 03/20/17 03/24/17 03/24/17 03/24/17 03/24/17 22:16 06:00 07:00 07:37 08:33 Temp 96.6 Pulse 60 Resp 24 B/P (MAP) 117/86 Pulse Ox 98 O2 Delivery Nasal Cannula O2 Flow Rate 3.00 FiO2 21 Capillary Refill : Less Than 3 Seconds I&O Intake and Output 03/24/17 23:59 Intake Total 600 ml Output Total 600 ml Balance 0 ml Intake Oral 600 ml Output Urine Total 600 ml General: Alert, Oriented X3, Cooperative HEENT: Atraumatic, PERRLA Neck: Supple, No JVD, No Thyromegaly Lungs: Clear to Auscultation, Normal Air Movement Heart: Regular Rate, Normal S1, Normal S2, No Murmurs Abdomen: Normal Bowel Sounds, Soft, No Tenderness, No Hepatosplenomegaly, No Masses Extremities: No Clubbing, No Cyanosis, No Edema, Normal Pulses, No Tenderness/ Swelling Skin: No Rashes, No Breakdown, No Significant Lesion Neuro: Normal Gait, Normal Speech, Strength at 5/5 X4 Ext, Normal Tone, Sensation Intact Psych/Mental Status: Mental Status NL, Mood NL Results Lab Laboratory Tests 03/24/17 04:40 A/P-Cardiology Admission Diagnosis Sepsis UTI Atrial fibrillation Hypotension Assessment/Plan Staph aureus sepsis, improving, receiving antibiotic, started on nafcillin. Endocarditis, Tricuspid valve vegetation, moderate tricuspid regurgitation, preserved left ventricular function, started on nafcillin, will need IV antibiotic treatment for 6 weeks Paroxysmal atrial fibrillation, converted to sinus rhythm after receiving digoxin. Blood pressure stable. Tolerating Eliquis well. Continue to monitor. Anterior chest wall pain, musculoskeletal mainly with coughing. Patient reports improvement. Unlikely to be cardiac at this time, had some ST depression while his heart rate is 140, planning to evaluate stress test as an outpatient. Generalized weakness and fatigue secondary to sepsis, continues to improve. Urinary tract infection, receiving antibiotics. Tobaccoism, educated on smoking cessation COPD, managed by Dr. Falcon Clinical Quality Measures DVT/VTE Risk/Contraindication: Risk Factor Score Per Nursin RFS Level Per Nursing on Admit: 4+=Very High CECILLE MONTIEL MD Mar 24, 2017 08:40
[2017-03-24] MEDS ORDERED: PRED10TA22 PO (09:31)
--- NOTE | 2017-03-24 09:42 | Discharge Summary-Hospitalist ---
Diagnosis/Chief Complaint Date of Admission Mar 20, 2017 at 19:55 Date of Discharge Admission Diagnosis 1.sepsis. 2.echocardiogram consistent with bacterial endocarditis/tricuspid valve. 3.pyuria/UTI. 4.atrial fibrillation presumably new. 5.prescription narcotic dependency. Discharge Diagnosis 03/24/17: Assessment: Acute endocarditis with MSSA needs 6 weeks of IV nafcillin Severe COPD AF now converted to NSR Anemia of chronic illness Severe weakness improved and ready to go home on HH chronic narcotic use 03/23/17 RT Review: Qualifies for 3L continuous O2 SW Review: Pt will need to go home on Nafcillin infusion for 6 weeks Yesterday was the first day he converted to normal sinus rhythm Cardiology communicated with infectious disease Patient Interview: Pt confirms being in Dr. Lugo' care before I took over. Pt states that Dr. Lugo was okay with him using his inhaler. Pt confirms having breathing treatments but he does not believe that they have been as effective as his inhaler. Pt states that his inhaler works the best for him and was upset that it was taken from him. I assured him that he will be able to use this after it has been charted. Pt states that he lives in [place] with his and his step son. Pt prefers not to confirm PCP. Pt does not want to involve his PCP at this time. Pt was informed that he will need abx at home Pt states he would like to try to ambulate by himself. Pt was informed that he will move to 4th floor and will be more able to ambulate by himself. Physical exam stable. Lungs sound perfect. Pt denies having a BM, but he states that he just started eating yesterday AFVSS, Pleasant, chronically ill RRR, CTAB diminished BS all landry No edema Laboratory Tests 03/23/17 05:15 Assessment: Acute endocarditis with MSSA Severe COPD AF now converted to NSR Anemia of chronic illness Severe weakness Plan: 3L continuous O2 Home health PT DC tomorrow if strong enough but I did place PT/OT orders and IRU in case he is too weak to return home Scribed by Catalina Howell under the direct supervision of Dr. Jain. Notes from 03/24/17 Pharmacy Review: Pt has been taking his home meds SW Review: Pt is supposed to be followed by Dr. Collins when he DCs, but for some reason he does not want us to know that Dr. Collins is involved Patient Interview: Pt states that Dr. Singh said he could DC on abx Pt states that his skill worker will be seeing him. Pt would like some PT with Home Health, even if it is just briefly. Pt would like his skill worker to be the one to help him with PT. Pt states that he ready to have a BM soon Physical exam stable. Lungs sound perfect. Pt confirms that he receives pain meds from his PCP Pt was informed that he can DC after lunch Plan: DC on abx Home Health Out-pt PT Scribed by Catalina Howell under the direct supervision of Dr. Jain. Discharge Summary Discharge Physical Examination Allergies: Coded Allergies: No Known Drug Allergies (Unverified , 08/23/13) Vitals & I&Os Vital Signs Date Time Temp Pulse Resp B/P (MAP) Pulse Ox O2 Delivery O2 Flow Rate FiO2 03/24/17 08:33 96.6 Nasal Cannula 3.00 03/24/17 08:32 98 03/24/17 07:00 60 03/24/17 06:00 24 03/20/17 22:16 21 Hospital Course Hospital course: Patient had a lengthy hospital course most of it critically ill due to atrial fibrillation with rapid ventricular response then workup revealed acute endocarditis blood culture revealed MSSA so nafcillin was ultimately chosen to complete 6 weeks of IV antibiotic therapy. He required continuous oxygen upon discharge so 3 L were ordered and arranged at time of discharge. He did not want to do full to his primary care provider was after many days in the hospital but records were reviewed regarding chronic narcotic use and that resulted in revealing the name of Dr. Collins at [facility] so I did confer with him regarding this critical illness of his patient and felt that he needed no that he would be on IV nafcillin for endocarditis and will need close follow-up with Dr. Singh and Dr. Collins considering the poor prognosis if adequate treatment is not completed. Home health orders were completed by Dr. Singh along with new cardiac medication and physical therapy will also be needed to further strengthen at home. Overall prognosis is guarded considering endocarditis and Long recovery and for mobility due to chronic back pain maintained on large amounts of narcotics but will try to support him in any way possible to help his recovery. Labs (last 24 hrs) Laboratory Tests 03/24/17 04:40: White Blood Count 7.1, Red Blood Count 3.62L, Hemoglobin 9.8L, Hematocrit 30L, Mean Corpuscular Volume 82, Mean Corpuscular Hemoglobin 27, Mean Corpuscular Hemoglobin Concent 33, Red Cell Distribution Width 16.1H, Platelet Count 212, Mean Platelet Volume 10.1, Neutrophils (%) (Auto) 81H, Lymphocytes (%) (Auto) 8L , Monocytes (%) (Auto) 11, Eosinophils (%) (Auto) 0, Basophils (%) (Auto) 0, Neutrophils # (Auto) 5.7, Lymphocytes # (Auto) 0.6L, Monocytes # (Auto) 0.8, Eosinophils # (Auto) 0.0, Basophils # (Auto) 0.0, Sodium Level 133L, Potassium Level 4.4, Chloride Level 106, Carbon Dioxide Level 19L, Anion Gap 8, Blood Urea Nitrogen 36H, Creatinine 0.96, Estimat Glomerular Filtration Rate > 60, BUN /Creatinine Ratio 38, Glucose Level 89, Calcium Level 7.6L, Phosphorus Level 3.7 , Magnesium Level 2.0 Microbiology 03/20/17 Blood Culture - Preliminary, Resulted Staphylococcus Aureus 03/20/17 MRSA Screen - Final, Complete MRSA not isolated 03/20/17 Urine Culture - Final, Complete NO GROWTH Pending Labs Laboratory Tests 03/24/17 04:40: White Blood Count 7.1, Red Blood Count 3.62, Hemoglobin 9.8, Hematocrit 30, Mean Corpuscular Volume 82, Mean Corpuscular Hemoglobin 27, Mean Corpuscular Hemoglobin Concent 33, Red Cell Distribution Width 16.1, Platelet Count 212, Mean Platelet Volume 10.1, Neutrophils (%) (Auto) 81, Lymphocytes (%) (Auto) 8, Monocytes (%) (Auto) 11, Eosinophils (%) (Auto) 0, Basophils (%) (Auto) 0, Neutrophils # (Auto) 5.7, Lymphocytes # (Auto) 0.6, Monocytes # (Auto) 0.8, Eosinophils # (Auto) 0.0, Basophils # (Auto) 0.0, Sodium Level 133, Potassium Level 4.4, Chloride Level 106, Carbon Dioxide Level 19, Anion Gap 8, Blood Urea Nitrogen 36, Creatinine 0.96, Estimat Glomerular Filtration Rate > 60, BUN/ Creatinine Ratio 38, Glucose Level 89, Calcium Level 7.6, Phosphorus Level 3.7, Magnesium Level 2.0 Discharge Home Medications: Active Scripts Active Prednisone 10 Mg Tab.ds.pk 10 Mg PO DAILY Take 6 tabs(60mg)daily,decrease by 1 tab(10MG)daily. Nafcillin 2 gm/ 100 ml Inj (Nafcillin in Dextrose,Iso-Osm) 2 Gm/100 Ml Froz.piggy 2 Gm IV Q4H 40 Days continuous infusion Reported Vitamin B-12 (Cyanocobalamin (Vitamin B-12)) 500 Mcg Tablet 500 Mcg PO DAILY Pantoprazole Sodium 40 Mg Tablet.dr 40 Mg PO DAILY Morphine Sulfate ER (Morphine Sulfate) 100 Mg Tablet.er 200 Mg PO 0800,1900 TAKES 2 (100MG) TABLETS Stiolto Respimat Inhal Aurora (Tiotropium Br/Olodaterol HCl) 4 Gm Mist.inhal 1 Puff INH BID Oxycodone HCl 20 Mg Tablet 40 Mg PO 1200,0000 TAKES 2 (20MG) TABLETS Instructions to patient/family Please see electonic discharge instructions given to patient. Clinical Quality Measures DVT/VTE Risk/Contraindication: Risk Factor Score Per Nursin RFS Level Per Nursing on Admit: 4+=Very High Copy Copies To 1: ARAVIND COLLINS MD, MINDI DO Mar 24, 2017 09:42
--- NOTE | 2017-03-24 09:52 | Physical Therapy Daily Note ---
PT Daily Note-Current Subjective Patient agrees to PT. He states he is going home today. Pain Numeric Pain Scale: 0-No Pain Location: No Pain Reported Mental Status Patient Orientation: Normal For Age Attachments: Oxygen (3L HF), IV Transfers Functional Foard Measure 0=Not Assessed/NA 4=Minimal Assistance 1=Total Assistance 5=Supervision or Setup 2=Maximal Assistance 6=Modified Foard 3=Moderate Assistance 7=Complete IndependenceIRFPAI Quality Coding Scale 6 Independent with activity with or without an assistive device 5 Patient requires set up or clean up by helper. Patient completes activity by themselves 4 Supervision or touching assist (CGA). [place] provide cues , steadying assist 3 The helper provides less than half the effort to complete the activity 2 The helper provides more than half the effort to complete the activity 1 Dependent. The helper does all the effort to complete an activity 7 Patient refused to complete or attempt activity 9 The patient did not perform the activity before the current illness or injury 88 Not attempted due to Medical conditions or safety concerns Transfers (B, C, W/C) (FIM): 6 Scootin Sit to/from Stand: 6 Gait Training Gait (FIM): 6 Distance (FIM): 3=150 ft Distance: 350' Gait Level of Assist: 6 Gait Assistive Device: FWW safe and functional Assessment Patient has established medical equipment and will receive home health upon dismissal from hospital. Patient is very motivated with progress. PT [employer] Supervisor Goals Senior Care Goals PT Senior Care Goals Time Frame: Mar 30, 2017 Transfers (B,C,W/C) (FIM): 5 Gait (FIM): 2 Distance: 50' Gait Level of Assist: 5 Gait Assistive Device: FWW PT Plan Treatment/Plan Treatment Plan: Discontinue PT, goals met Treatment Plan: Bed Mobility, Education, Functional Activity Frida, Functional Strength, Gait, Safety, Therapeutic Exercise, Transfers Treatment Duration: Mar 30, 2017 Frequency: 6 times per week Estimated Hrs Per Day: .25 hour per day (15-30 min) Patient and/or Family Agrees t: Yes Time/GCodes Time In: 926 Time Out: 936 Total Billed Treatment Time: 10 Total Billed Treatment 1 visit FA 10 min STEVE MOYER PT Mar 24, 2017 09:52
[2017-03-24] MEDS ORDERED: APIX5TAB PO (12:06)
[2017-03-24] MEDS ORDERED: PANT40TA3 PO (12:06)
[2017-03-24] MEDS ORDERED: ATOR40TA PO (12:06)
[2017-03-24] MEDS ORDERED: DIGO250T15 PO (12:06)
[2017-03-24] MEDS ORDERED: METO-270 PO (12:06)
== END 2017-03-24 11:50 | disposition home health service (06) | DRG 871 ==
LOC: ER 17:36 → EDUNIT# 17:36 → ICU 19:55
PROVIDERS: ADMIT Internal Medicine; ATTEND Internal Medicine
DX: A41.01 Sepsis due to Methicillin susceptible Staphylococcus aureus (principal); R65.20 Severe sepsis without septic shock; I33.0 Acute and subacute infective endocarditis; N39.0 Urinary tract infection, site not specified; J44.1 Chronic obstructive pulmonary disease with (acute) exacerbation; I48.92 Unspecified atrial flutter; F11.20 Opioid dependence, uncomplicated; I48.91 Unspecified atrial fibrillation; K21.9 Gastro-esophageal reflux disease without esophagitis; G96.19 Other disorders of meninges, not elsewhere classified; M54.2 Cervicalgia; R07.89 Other chest pain; E87.6 Hypokalemia; E83.42 Hypomagnesemia; K06.8 Other specified disorders of gingiva and edentulous alveolar ridge; F17.210 Nicotine dependence, cigarettes, uncomplicated; D63.8 Anemia in other chronic diseases classified elsewhere; R53.1 Weakness
CPT/HCPCS: 36415; 36569; 70490; 71010; 71250; 76937; 80048; 80053; 80061; 80162; 80202; 80306; 81000; 82330; 82805; 83605; 83735; 83935; 84100; 84484; 85007; 85025; 85027; 85610; 85652; 85730; 86703; 87040; 87077; 87081; 87088; 87186; 93005; 93306; 94640; 94664; 94761; 96361; 96365; 96372; 96375